=== PATIENT | male | born 1940 | race Caucasian/White ===

== ENCOUNTER 2016-11-17 17:34 | Inpatient (IN) | payer MEDICARE, OTHER ==
[~2016-11-17] VITALS: Ht 180.3 cm; Wt 122.1 kg
[~2016-11-17 17:34] MED LIST: ATOR20TA PO; FURO40TA4 PO; LOSA50TA37 PO; NOVO7030I SUBQ; OMEP20TA86 PO; RIVA15TA PO
[2016-11-17 17:40] VITALS: BP 154/76; PULSE 59; RESP 18; O2SAT 97
--- NOTE | 2016-11-17 19:18 | ED.REPORT ---
HPI-General Illness Date of Service November 17, 2016 ED Provider: Jeronimo Finney MD A 75 year old male with a medical history including diabetes, PE, arthritis, CVA , degenerative disc disease, and chronic BLE edema presents to the ED with increasing problems ambulating onset a couple of weeks ago, worsening three days ago. Associated symptoms include exertional shortness of breath, bilateral leg weakness, generalized "tingling," fatigue, and chills. The patient denies fever, diaphoresis, new leg swelling, dysuria, hematuria, hematochezia, recent weight change, or other symptoms. One month ago the patient could walk multiple lengths of his house but how he is short of breath and hardly able to walk out to his car. Nursing Notes Stated Complaint: LACK OF ENERGY/TINGLING IN BOTH ARMS AND CHEST Chief Complaint: General Complaint Nursing Notes Reviewed: Yes ([employer] not reconciled, EMR indicates ho Xarelto use) Allergies: Coded Allergies: No Known Allergies (Unverified , 11/17/16) Scheduled Aspirin (Aspirin) 81 Mg Tablet 81 MG PO DAILY Atorvastatin (Lipitor) 20 Mg Tablet 20 MG PO HS Furosemide (Furosemide) 40 Mg Tablet 40 MG PO QAM Insulin Aspart (NovoLOG 70/30 U100 Insulin Vial) 100 Unit/Ml Vial 35 UNIT SUBQ BID Losartan Potassium (Losartan Potassium) 50 Mg Tablet 50 MG PO BID Omeprazole (Omeprazole) 20 Mg Tablet.dr 40 MG PO DAILYWM Rivaroxaban (Xarelto) 15 Mg Tablet 15 MG PO BID General Time Seen by MD: 19:04 Chief Complaint Other (Problems with Ambulation) Hx Obtained From: Patient, Spouse Arrived By: Walk-in Sudden in Onset?: No Onset Occurred: More than a week ago... ("A couple of weeks") Symptom Duration: Since onset Severity: Current: No pain currently Severity: Maximum: No pain Pertinent Negative: Relieved by nothing Context Related History: Reports Diabetes mellitus Recent Healthcare: No recent doctor visit Past Medical History Past Medical History Notes: Admission for PE 09/17/15, on Warfarin Past Medical History Sleep apnea (not compliant w/CPAP) Arthritis Chronic BLE edema PE 09/2015 Degenerative disc disease CVA Reports: Diabetes mellitus, GERD, Stroke Past Surgical History Bilateral knee replacements Smoking History Never Smoker Social History Alcohol Use: Denies alcohol use Drug Use: Denies drug use Other Social History: Good social support, , Local resident Ambulatory Status Independent Review of Systems + Generalized "tingling" - New leg swelling Full Review of Systems Constitutional: Reports: Chills, Fatigue, Denies: Fever Respiratory: Reports: Shortness of breath (Exertional), Denies: Non-productive cough GI: Denies: Diarrhea, Hematochezia, Vomiting Male: Denies Dysuria, Denies Hematuria Endocrine: Denies: Weight gain, Weight loss Skin: Denies Diaphoresis Neurologic: Reports: Problem walking, Weakness (Bilateral lower extremities) Complete sys rev & neg: except as marked. Physical Exam Vital Signs Vital Signs Date Time Temp Pulse Resp B/P Pulse Ox O2 Delivery O2 Flow Rate FiO2 11/17/16 21:02 55 20 144/73 98 Room Air 11/17/16 17:40 36.0 59 18 154/76 97 Room Air Initial VS: Reviewed, Vital signs normal Head / Eyes: Atraumatic, Normocephalic ENT: Conjunctiva normal, No scleral icterus Skin: Warm, Dry Psychiatric: Mood/affect normal, Behavior normal General/Constitutional: Awake, Alert, No acute distress Respiratory / Chest: Breath sounds NL, Breath sounds = bilat, No respiratory distress No dyspnea Cardiovascular: Heart rate NL, Regular rhythm, Heart sounds NL, No murmurs Lower Ext Edema: Positive: Bilateral 2+, Pitting Abdomen: Soft, Non-tender Obese Neurologic: Oriented X3, Speech NL Focal Weakness: Positive: Lower extremity L, Lower extremity R, Weakness diffuse L, Weakness diffuse R No focal deficits Interpretation & Diagnostics Lab Results Interpretation Result Diagram: 11/17/16200911/17/162009 Test 11/17/16 20:10 11/17/16 22:19 11/17/16 22:40 White Blood Count 7.3th/mm3 (3.8-10.1) Red Blood Count 4.85mil/mm3 (4.40-5.80) Hemoglobin 15.1g/dL (13.8-17.2) Hematocrit 46.6% (41.0-50.0) Mean Corpuscular Volume 96.1fL (81-100) Mean Corpuscular Hemoglobin 31.1pg (27.0-35.0) Mean Corpuscular Hemoglobin Concent 32.4% (32.0-37.0) Red Cell Distribution Width 13.6% (12.3-15.4) Platelet Count 160bil/L (150-400) Neutrophils (%) (Auto) 68.6% (40-74) Lymphocytes (%) (Auto) 16.1% (14-46) Monocytes (%) (Auto) 8.8% (4-12) Eosinophils (%) (Auto) 5.9% (0-5) Basophils (%) (Auto) 0.3% (0-3) Prothrombin Time 10.0sec (8.1-12.5) Prothromb Time International Ratio 0.94ratio Activated Partial Thromboplast Time 25.9sec (22.8-33.0) D-Dimer 6.21mg/L FEU (<0.50) Sodium Level 144mEq/L (134-144) Potassium Level 4.5mEq/L (3.5-5.2) Chloride Level 104mEq/L (97-108) Carbon Dioxide Level 24mmol/L (18-29) Blood Urea Nitrogen 36mg/dL (8-27) Creatinine 1.18mg/dL (0.76-1.27) Estimat Glomerular Filtration Rate 64mL/min (>59) Glucose Level 117mg/dL (60-99) Lactic Acid Level 1.0mmol/L (0.4-2.0) Calcium Level 10.2mg/dL (8.5-10.1) Magnesium Level 1.9mg/dL (1.6-2.6) Total Bilirubin 0.5mg/dL (0.0-1.2) Aspartate Amino Transf (AST/SGOT) 13U/L (0-50) Alanine Aminotransferase (ALT/SGPT) 12U/L (0-44) Alkaline Phosphatase 73U/L (25-160) Pro-B-Type Natriuretic Peptide 172.5pg/mL (0-486) Total Protein 6.8g/dL (6.4-8.4) Albumin 4.3g/dL (3.4-5.0) Urine Color Yellow (YELLOW) Urine Appearance Clear (CLEAR,HAZY) Urine pH 5.5 (5.0-8.0) Urine Specific [place]ady 1.020 (1.003-1.035) Urine Protein Negativemg/dL (NEG,TRACE) Urine Glucose (UA) Negativemg/dL (NEGATIVE) Urine Ketones Negativemg/dL (NEGATIVE) Urine Occult Blood Negative (NEGATIVE) Urine Nitrite Negative (NEGATIVE) Urine Bilirubin Negative (NEGATIVE) Urine Urobilinogen Normalmg/dL (NORMAL) Urine Leukocyte Esterase Small (NEGATIVE) Urine RBC 0-2/hpf (0-2) Urine WBC 6-10/hpf (0-5) Urine Epithelial Cells Occasional/hpf (NONE-MOD) Urine Crystals None seen (NONE SEEN) Urine Bacteria None/hpf (NONE-FEW) Urine Hyaline Casts None/lpf (NONE) Urine Granular Casts None seen (NONE SEEN) Urine Waxy Casts None seen (NONE SEEN) Urine Red Blood Cell Casts None seen (NONE SEEN) Urine White Blood Cell Casts None seen (NONE SEEN) Urine Mucus None seen (None Seen) Urine Trichomonas None seen (NONE SEEN) Urine Yeast None (NONE SEEN) Urine Culture Reflexed Indicated Total Creatine Kinase 78U/L (21-232) Creatine Kinase MB 4.5ng/mL (0.0-10.4) Creatine Kinase MB % % (0.0-5.0) Troponin T 0.057ug/L (0.0-0.011) Thyroid Stimulating Hormone (TSH) 1.210uIU/mL (0.450-4.500) Lab Results Interpretation: CBC normal CMP normal Troponin elevated D-dimer elevated ProBNP normal ECG Interpretation ECG Interpretation: Sinus bradycardia rate 54 First degree heart block J-point elevation unchanged from prior (12/19/2015) Time: 19:09 Interpreted by: ED physician CT Chest Interpretation IMPRESSION: No pulmonary emboli identified. No aorta dissection evident. Small probable benign right renal cyst partially demonstrated. Nonemergent follow-up is recommended to assure benign nature. Transmitted to ED at 11/17/2016 - 10:12:31 PM PDT Study type: CT pulm angiogram Interpretation / Wet Read by: Interpret - Radiologist Re-Eval/Medical Decision Med Decision/Clinical Course This is a 75-year-old males had a previous PE, but is now off anticoagulation, who comes in with a history of worsening dyspnea on exertion, and profound generalized weakness and progressive over the past couple weeks. As recently as a month ago the patient could get up, walk around, he will use a cane, woke walk up to his car and drive. However over the past week, he he has gotten to the point we can barely walk the length of his house which he estimates to be 50 -60 feet being exhausted, and not able to do any further exertion for the day. His has noted profound new dyspnea on exertion as well-all the patient really did not describe such dyspnea to me. He denies chest pain diaphoresis. X-rays even get up-and asked what bottomed to the emergency department. He denies fevers, chills, blood loss, new medications, or additional complaints. Exam, and is globally weak, and cannot even lift either leg up off the gurney for more than an second. He has no focal deficits. His lung sounds are distant stiff secondary to habitus. And he has chronic edema of her legs which she says is unchanged. No Acute ischemic changes are evident on EKG, but is not notable for significant elevated d-dimer, and an elevated troponin-raising concern for recurrent PE. However his CT angiogram was ultimately negative, although given the initial concern I initiated the patient on a heparin drip. The patient's had aspirin today. At this point with the elevated troponin, an underlying cardiac event remains concerning as the patient's renal function is normal. An STEMI remains in the differential, and the patient is being admitted. Given the elevated troponin, and the fact that every initiated the patient And the plan is to leave him on heparin overnight while he has cardiac evaluation is being further pursued. Case is discussed with the admitting hospitalist. Source of Hx: Old records Time of Eval: 22:21 Patient Status: Condition improved Re-Evaluation/Progress Note: Discussed with patient lab, x-ray, and CT results, diagnosis, and plan for admit. Patient agrees with plan for care and all questions were addressed. Consultation : Referral / Consult Name: Hai Fairbanks MD Consulted With: Hospitalist Call Returned at: 22:26 Desulfurizer Machine: Agrees with eval, Agrees with plan, Accepts admit Differential Diagnosis: Negative: Abdominal pain, Allergies, Malingering Counseled Regarding: Diagnosis, Lab results, Need for admission Discharge & Departure Primary Impression: NSTEMI (non-ST elevated myocardial infarction) Additional Impressions: Generalized weakness Elevated troponin Disposition: ADMITTED TO HOSPITAL Discharge Condition All VS Reviewed: Yes Condition: Improved Referrals: Amanda Mccoy MD (PCP) Scribe Attestation Portions of this note were transcribed by Teresa Driver. I, Dr. Finney, personally performed the history, physical exam, and medical decision-making; I reviewed and confirmed the accuracy of the information in the transcribed note. Signed by: Lovely Catalan, 11/18/2016, 01:39 copies to: Amanda Mccoy MD, Matthew F MD November 17, 2016 19:18 TERESA DRIVER November 17, 2016 19:26
[2016-11-17 20:23] LABS: BASOPHILS % (AUTO) 0.3 % (0-3); EOSINOPHILS % (AUTO) 5.9 % (0-5); MONOCYTES % (AUTO) 8.8 % (4-12); Mean Corpuscular Hemoglobin 31.1 pg (27.0-35.0); Mean Corpuscular Volume 96.1 fL (81-100); NEUTROPHILS % (AUTO) 68.6 % (40-74); Platelet Count 160 bil/L (150-400)
--- NOTE | 2016-11-17 20:28 | DRSVH ---
PROCEDURE: X-RAY CHEST ONE VIEW, PORTABLE ([id number]) INDICATIONS: SHORTNESS OF BREATH TECHNIQUE: One view of the chest was acquired. COMPARISON: None. FINDINGS: Surgical changes and devices: None. Lungs and pleura: No pleural effusions or pneumothorax. Lungs are abnormal with a mild interstitial prominence and potential for presence of slight pulmonary edema. Mediastinum: Mediastinal contours appear normal. Heart size is at the upper limits of normal. Bones and chest wall: No suspicious bony lesions. Overlying soft tissues appear unremarkable. IMPRESSION: Mild interstitial prominence previously present, heart size at the upper limits of quan l. Possible slight superimposed pulmonary edema. Dictated by: Td Bliss M.D. on 11/17/2016 at 20:25 Approved by: Td Bliss M.D. on 11/17/2016 at 20:26
[2016-11-17 20:43] LABS: INR 0.94 ratio
[2016-11-17 20:46] LABS: Magnesium 1.9 mg/dL (1.6-2.6)
[2016-11-17 20:50] LABS: D-Dimer 6.21 mg/L FEU (<0.50)
[2016-11-17 21:02] VITALS: BP 144/73; PULSE 55; RESP 20; O2SAT 98
[2016-11-17] MEDS ORDERED: Heparin 25K Unit/500mL 0.45 NS 25,000 UNIT in IV Premix 1 EACH IV ONE (21:05)
[2016-11-17] MEDS ORDERED: Heparin 5,000 Unit/mL Inj IVPUSH ONE (21:05)
[2016-11-17 21:07] LABS: TROPONIN T 0.07 ug/L (0.0-0.011)
[2016-11-17] MEDS ORDERED: 0.9% Sodium Chloride 1,000 ML IV SCH (22:28)
[2016-11-17] MEDS ORDERED: Polyethylene Glycol (PEG) 17 Gm Powder PO PRN (22:30)
[2016-11-17] MEDS ORDERED: Atropine 1 mg/10 mL (Code) Syringe IVPUSH PRN (22:30)
[2016-11-17] MEDS ORDERED: Ondansetron 2 mg/mL 2 mL Inj IVPUSH PRN (22:30)
[2016-11-17] MEDS ORDERED: Alum-Mag Hydrox-Simeth 30 mL Suspension PO PRN (22:30)
[2016-11-17 22:38] LABS: APPEARANCE,URINE CLEAR (CLEAR,HAZY); COLOR,URINE YELLOW (YELLOW); OCCULT BLOOD,URINE NEGATIVE (NEGATIVE); PH,URINE 5.5 (5.0-8.0); UROBILINOGEN,URINE NORMAL (NORMAL)
[2016-11-17] MEDS ORDERED: Glucose 40% Oral Gel 15 Gm Tube PO PRN (22:45)
[2016-11-17 23:43] VITALS: BP_SYST 140; PULSE 53; RESP 20; O2SAT 99
[2016-11-17 23:45] LABS: Creatine Kinase 78 U/L (21-232)
[2016-11-17 23:48] LABS: TROPONIN T 0.057 ug/L (0.0-0.011)
[2016-11-18] VITALS (11 sets, daily range): BP systolic 120–159; BP diastolic 58–82; PULSE 45–66; RESP 16–20; O2SAT 94–96
[2016-11-18] MEDS: Sodium Chloride LOK Flush 10 mL Syringe IVFLUSH SCH ×4 (00:30→20:23)
[2016-11-18] MEDS ORDERED: ASPI-973 PO (00:31)
--- NOTE | 2016-11-18 01:22 | PCM.HPMED ---
Subjective Date of Service November 17, 2016 Primary Provider: Admitting Physician: Primary Care Physician: Amanda Mccoy MD Attending Physician: Admit Status: From the Emergency Department, 23-Hour Observation Chief Complaint: Generalized weakness History of Present Illness: Moses Paz is a 75 year old male with Diabetes, Prior Pulmonary embolism, Obesity and Sleep apnea and chronic BLE edema presents to [facility] emergency with increasing problems ambulation and generalized weakness Patient reported onset a couple of weeks ago, worsening within the last three days. Associated symptoms include exertional shortness of breath, bilateral leg weakness (requiring a walker, walking only few feet before pausing to rest, baseline is able to perform activities of daily life), generalized "tingling," fatigue, and chills. Denies any coughing, fever or chills. Denies any urinary symptoms such as dysuria. Patient reported compliance with medications. Also reporting good Diabetes control at home Patient has history of Pulmonary embolism years ago and currently not on any anticoagulations. Etiology of this was unclear at this time Case discussed with Dr Finney, CT confirmed no Pulmonary embolism. Heparin initiated. Discussed risk factors and need for stress test and will be admitted Review of Systems: Pertinent positives as noted in HPI. All other systems were reviewed and are negative Allergies Coded Allergies: No Known Allergies (Unverified , 11/17/16) Home Medications From NEXT GEN, NOT YET CONFIRMED Medication Directions aspirin 81 mg tablet,delayed release take 1 tablet by oral route every day ATORVASTATIN TAB 20MG TABLET TAKE ONE TABLET BY MOUTH EVERY DAY FUROSEMIDE 40 MG TABLET take 1 and 1/2 to 2 tablets by mouth daily insulin syringe-needle U-100 0.3 mL 31 gauge x 5/16" use to inject insulin 70/ 30 twice daily losartan 50 mg tablet take 1 tablet (50MG) by oral route 2 times every day Novolog Mix 70-30 100 unit/mL subcutaneous solution inject by subcutaneous route 28-32 units with breakfast and 33-36 dinner omeprazole 20 mg capsule,delayed release take 1 capsule by oral route every day before a meal tamsulosin 0.4 mg capsule take 1 capsule by oral route every day 1/2 hour following the same meal each day tramadol 50 mg tablet take 1 tablet by oral route every 6 hours as needed PMH History of pulmonary embolus Type 2 diabetes mellitus Incomplete emptying of bladder Hyperlipidemia Obesity with MATEO (obstructive sleep apnea) Stroke Restless legs syndrome Essential tremor Hypertension GERD Benign prostate hyperplasia Swelling of lower extremities Persistent diarrhea Chronic back pain Spinal stenosis and foraminal stenosis with difficulty walking . Surgical History TURP Bilateral knee surgery Family History Father and Brother diabetic Brother has angioplasty and stent placed Social History Occupation: elevator service mechanic Hx Alcohol Use: No Hx Substance Use: No Hx Tobacco Use: No Smoking Status: Never Smoker Living Arrangement: with Family Exam Vital Signs Vital Sign - Last Date Time Temp Pulse Resp B/P Pulse Ox O2 Delivery O2 Flow Rate FiO2 11/17/16 21:02 55 20 144/73 98 Room Air 11/17/16 17:40 36.0 Exam General: Alert, Oriented X3, Cooperative, No acute Distress Eyes: PERRLA, Scleral Anicteric Mouth: Mouth Normal, Mucous Membranes Moist/[place] Neck: Supple, no Thyromegaly, trachea central. Chest & Lungs: decreased breathe sounds at bases Cardiovascular: Normal S1, Normal S2, No Murmurs/Rubs/Gallops, Regular Rate/ Rhythm, (No JVD, 2 + peripheral edema) Pulses: Radial (present and equal), Dorsalis Pedi (present and equal) Abdomen: Soft, Non-tender, Non-distended, Normoactive bowel tones. Musculoskeletal: Unremarkable. Normal range of motion, no swollen or erythematous joints Extremities: 2 + edema, no cyanosis, no clubbing. Skin: No rashes. Warm and dry, no erythematous areas Neurological: Grossly neurologically intact, has generalized weakness, Normal Speech, Sensation Intact Lymphatic: Lymph nodes Cervical and Axillary not palpable. Lab and Diagnostics Labs Laboratory Tests Test 11/17/16 20:10 11/17/16 22:19 White Blood Count 7.3th/mm3 (3.8-10.1) Red Blood Count 4.85mil/mm3 (4.40-5.80) Hemoglobin 15.1g/dL (13.8-17.2) Hematocrit 46.6% (41.0-50.0) Mean Corpuscular Volume 96.1fL (81-100) Mean Corpuscular Hemoglobin 31.1pg (27.0-35.0) Mean Corpuscular Hemoglobin Concent 32.4% (32.0-37.0) Red Cell Distribution Width 13.6% (12.3-15.4) Platelet Count 160bil/L (150-400) Neutrophils (%) (Auto) 68.6% (40-74) Lymphocytes (%) (Auto) 16.1% (14-46) Monocytes (%) (Auto) 8.8% (4-12) Eosinophils (%) (Auto) 5.9% (0-5) Basophils (%) (Auto) 0.3% (0-3) Prothrombin Time 10.0sec (8.1-12.5) Prothromb Time International Ratio 0.94ratio D-Dimer 6.21mg/L FEU (<0.50) Sodium Level 144mEq/L (134-144) Potassium Level 4.5mEq/L (3.5-5.2) Chloride Level 104mEq/L (97-108) Carbon Dioxide Level 24mmol/L (18-29) Blood Urea Nitrogen 36mg/dL (8-27) Creatinine 1.18mg/dL (0.76-1.27) Estimat Glomerular Filtration Rate 64mL/min (>59) Glucose Level 117mg/dL (60-99) Lactic Acid Level 1.0mmol/L (0.4-2.0) Calcium Level 10.2mg/dL (8.5-10.1) Magnesium Level 1.9mg/dL (1.6-2.6) Total Bilirubin 0.5mg/dL (0.0-1.2) Aspartate Amino Transf (AST/SGOT) 13U/L (0-50) Alanine Aminotransferase (ALT/SGPT) 12U/L (0-44) Alkaline Phosphatase 73U/L (25-160) Troponin T 0.070ug/L (0.0-0.011) Pro-B-Type Natriuretic Peptide 172.5pg/mL (0-486) Total Protein 6.8g/dL (6.4-8.4) Albumin 4.3g/dL (3.4-5.0) Thyroid Stimulating Hormone (TSH) 1.220uIU/mL (0.450-4.500) Result Diagram: 11/17/16200911/17/162009 X-Rays, CTs and MRIs X-RAY CHEST ONE VIEW, PORTABLE 11/17 IMPRESSION: Mild interstitial prominence previously present, heart size at the upper limits of normal. Possible slight superimposed pulmonary edema. Dictated by: Td Bliss M.D. on 11/17/2016 at 20:25 Approved by: Td Bliss M.D. on 11/17/2016 at 20:26 CT ANGIO CHEST PULMONARY EMBOLISM 11/17 IMPRESSION: 1. No pulmonary embolus seen. 2. Stable appearance of ascending aortic aneurysm measuring 5.3-5.4 cm in maximal dimension, just above the aortic root, and is also present on prior pulmonary angiographic imaging as early as 09/19/15. 3. Stable appearance of a partially visualized cyst projecting from the upper outer border of the right kidney, also present on prior CT scanning. Note: These findings are concordant with the preliminary interpretation, except for the benefit of comparison to prior CT renal protocol examination regarding the right upper renal cortical cyst. Also, there is a stable enlargement of the ascending aorta at 5.3-5.4 cm maximal AP dimension which was also present on the earliest available CT pulmonary angiogram from 09/19/15, and . Dictated by: Td Bliss M.D. on 11/18/2016 at 3:26 Approved by: Td Bliss M.D. on 11/18/2016 at 3:39 Assessment & Plan Moses Paz is a 75 year old male with Diabetes, Prior Pulmonary embolism, Obesity and Sleep apnea and chronic BLE edema presents to [facility] emergency with increasing problems ambulation and generalized weakness 1. Acute generalized weakness with dyspnea. Present on admission. resolved Pulmonary embolism ruled out with CT angio tonight (elevated D dimer). Several risk factors for Acute Coronary artery disease with Hypertension, Obesity, Diabetes, Family history of coronary disease and age. No previous Stress test as per patient. Dyspnea can be an anginal equivalent and Diabetics have atypical symptoms with myocardial infarction. - monitor on telemetry - trending cardiac biomarkers - continue Aspirin for platelet therapy - continue Heparin drip overnight - nothing by mouth after midnight - Physical therapy assessment 2 Acute on Chronic bilateral leg edema. Present on admission Suspect Heart failure despite normal BNP (Obesity can falsely low BNP levels). Clinical evidence with leg edema and dyspnea on exertion - complete echo requested - maintain low sodium diet 3 Diabetes Type 2 - low correction Lispro algorithm - checking A1c - patient on insulin 70/30 as outpatient (will confirm dose) 4 Obesity with Obstructive Sleep Apnea - non compliant with CPAP due to trouble sleeping 5 Hyperlipidemia - continue Atorvastatin 20 mg daily 6 Hypertension - continue Losartan 50 mg bid 7 Benign prostate hyperplasia - continue Tamsulosin 0.4 mg daily 8 Chronic back pain Spinal stenosis and foraminal stenosis No acute neurological deficit noted - Acetaminophen as needed for mild pain/fever/headache - Bowel regimen as needed - Antiemetic as needed Patient is admitted under observation status with expected length of stay less than 2 midnights due to severity of presenting symptoms, risk of adverse event, and complexity of treatment plan . Resuscitation Status: CPR: Attempt Resuscitation Hai Fairbanks MD November 17, 2016 22:35
--- NOTE | 2016-11-18 02:01 | NUR ---
Pt admitted to [facility] from ED. Transport via gurney, pt able to ambulate to standing scale and bed. Pt is a/o x 3. Moves all extremities. Significant edema to lower extremities which is baseline for this pt. HR sinus rodney with no ectopy noted. Blood sugar was 102. Vital signs stable. All belongings are in pt's closet in room. Will continue to closely monitor pt through the night.
--- NOTE | 2016-11-18 03:41 | DRSVH ---
PROCEDURE: CT ANGIO CHEST PULMONARY EMBOLISM ([id number]) INDICATIONS: SOB, DImer 7, ho PE TECHNIQUE: After the administration of intravenous contrast, 2 mm thick sections acquired from the pulmonary api juice to the posterior costophrenic angles. 3-dimensional maximum intensity projection (MIP) coronal a nd sagittal reformats were then acquired through the thorax. For radiation dose reduction, the follo wing was used: automated exposure control, adjustment of mA and/or kV according to patient size. C was present on prior CT pulmonary angiographic imaging OMPARISON: [facility], CT, CHES T ANGIO-PE, 12/29/2012, 19:06. [facility], CT, CT ANGIO CHEST PE, 09/19/2015, 0:12. [facility], CT, CT ANGIO CHEST PE, 10/08/2015, 16:46. [facility], CT, CT ABD RENAL PROTOCOL, 06/25/2016, 15:03. FINDINGS: Image quality: Excellent. Pulmonary arteries: Pulmonary arteries are normal in size, and demonstrate no intraluminal filling d efects to suggest central pulmonary embolism. Lungs and pleura: Lungs are clear. No pleural effusions or pneumothorax. Central and peripheral ai rways are patent. Mediastinum: Heart size is normal, without pericardial effusion. No mediastinal or hilar adenopathy . The descending aorta is normal in caliber and enhancement, and the ascending thoracic aorta has not changed from the prior examination (also pulmonary embolus evaluation) dated 12/19/15 the maximal AP d imension of 5.3-5.[address] earlier CT pulmonary angiogram from December of 2012 in the same area sh ow the ascending aorta be to be measured at 5.5 cm. Esophagus is normal in caliber, without hiatal h ernia. Bones and chest wall: No suspicious bony lesions. Ribs and thoracic spine appear intact throughout. Thyroid gland appears normal where well visualized. No axillary or supraclavicular adenopathy. Abdomen: Visualized upper abdominal solid organs appear normal in the early arterial phase of enhanc ement. There is a simple appearing cyst at the upper outer border of the right kidney, only partiall y visualized but better visualized by dedicated renal protocol CT from 06/25/16. IMPRESSION: 1. No pulmonary embolus seen. 2. Stable appearance of ascending aortic aneurysm measuring 5.3-5.4 cm in maximal dimension, just ab ove the aortic root, and is also present on prior pulmonary angiographic imaging as early as 09/19/15. 3. Stable appearance of a partially visualized cyst projecting from the upper outer border of the ri ght kidney, also present on prior CT scanning. Note: These findings are concordant with the preliminary interpretation, except for the benefit of c omparison to prior CT renal protocol examination regarding the right upper renal cortical cyst. Also , there is a stable enlargement of the ascending aorta at 5.3-5.4 cm maximal AP dimension which was a lso present on the earliest available CT pulmonary angiogram from 09/19/15, and 12/29/12. Dictated by: Td Bliss M.D. on 11/18/2016 at 3:26 Approved by: Td Bliss M.D. on 11/18/2016 at 3:39
[2016-11-18 04:48] LABS: BASOPHILS % (AUTO) 0.3 % (0-3); EOSINOPHILS % (AUTO) 7.2 % (0-5); MONOCYTES % (AUTO) 11.3 % (4-12); Mean Corpuscular Hemoglobin 31.5 pg (27.0-35.0); Mean Corpuscular Volume 95.7 fL (81-100); NEUTROPHILS % (AUTO) 63.9 % (40-74); Platelet Count 166 bil/L (150-400)
[2016-11-18 05:21] LABS: Creatine Kinase 82 U/L (21-232)
[2016-11-18 05:24] LABS: TROPONIN T 0.054 ug/L (0.0-0.011)
[2016-11-18] MEDS: Insulin LISPRO 300 Unit/3 mL Inj SUBQ SCH ×4 (08:00→21:00)
[2016-11-18] MEDS ORDERED: Furosemide 10 mg/mL 4 mL Inj IVPUSH ONE (09:55)
--- NOTE | 2016-11-18 11:23 | NUR ---
Case Management: RENETTA given and explained to pt. Gilma BARLOWRN
--- NOTE | 2016-11-18 12:15 | DRSVH ---
[facility] [address] [place] [place] [address] Echocardiogram Report Name: NICK BEYER Date: 11/18/2016 Height: 71 in Hospital Exam Location: [facility] Weight: 274 lb Gender: Male BSA: 2.4 m2 : 1940 Age: 75 yrs BP: 129/58 mmHg Reason For Study: Chest pain Ordering Physician: [facility] Performed By: Yaakov Lopez Referring Physician: OH KIRKPATRICK Interpretation Summary The left ventricle is normal in size. Left ventricular systolic function is low normal. The ejection fraction is estimated to be 50-55%. Compared to the prior exam, left ventricular function is borderline decreased. There is hypokinesis along the inferolateral wall and part of the inferior wall which is new since prior study. Assessment of diastolic parameters indicates a relaxation abnormality of the left ventricle, consistent with normal filling pressures. The right ventricle is normal in size and function. The right ventricular systolic pressure is estimated at 25 mmHg assuming a right atrial pressure of 3 mm Hg. The left atrium is mildly dilated. The right atrium is mildly dilated. There is mild aortic regurgitation. The aortic valve is moderately calcified. There is no hemodynamically significant valvular aortic stenosis. The aortic root is moderately dilated. The ascending aorta is moderately enlarged. This is increased compared to the previous study. Procedure: A two-dimensional transthoracic echocardiogram with color flow and Doppler was performed. The study quality was technically adequate. A contrast injection of Definity was performed to improve assessment of LV function. Comparison is made with the echocardiogram of 12/22/2015. Left Ventricle: The left ventricle is normal in size. Left ventricular systolic function is low normal. The ejection fraction is estimated to be 50- 55%. Compared to the prior exam, left ventricular function is borderline decreased. There is hypokinesis along the inferolateral wall and part of the inferior wall. Compared to the prior exam, the posterior wall motion abnormality has increased in severity. Assessment of diastolic parameters indicates a relaxation abnormality of the left ventricle, consistent with normal filling pressures. Right Ventricle: The right ventricle is normal in size and function. Atria: The left atrium is mildly dilated. The right atrium is mildly dilated. There is no Doppler evidence for an atrial septal defect. Mitral Valve: The mitral valve leaflets are mildly calcified. There is mild mitral annular calcification. There is no mitral regurgitation noted. Aortic Valve: The aortic valve is trileaflet. The aortic valve is moderately calcified. The peak aortic velocity is 248 m/sec. The aortic valve mean gradient is 15 mmHg. There is no hemodynamically significant valvular aortic stenosis. There is mild aortic regurgitation. Tricuspid Valve: The tricuspid valve is not well visualized. The tricuspid valve is not well visualized, but is grossly normal. The right ventricular systolic pressure is estimated at 25 mmHg assuming a right atrial pressure of 3 mm Hg. Pulmonic Valve: The pulmonic valve leaflets are thin and pliable; valve motion is normal. There is a trace or physiologic amount of pulmonic regurgitation. Great Vessels: The aortic root is moderately dilated. The ascending aorta is moderately enlarged. This is increased compared to the previous study. The IVC is of normal diameter and collapses greater than 50% with a sniff. This suggests a low right atrial pressure of 3 mm Hg. Pericardium/ Pleura There is no pericardial effusion. There is no pleural effusion. MMode/2D Measurements & Calculations LVIDd: 5.1 cm RA long axis LVOT diam LVIDs: 3.8 cm LA A2 area: 23.0 cm FS: 25.7 % LA A4 area: 24.1 cm RA area AoV Opening LA length (vol): 5.9 cm LA vol: 79.6 ml : 23.4 cm Ao root diam LA vol index RA vol : 96.0 ml Aortic Jxn RA IVC diam: 2.1 cm : 39.8 mm2 asc Aorta Diam: 4.8 cm LV headley. diameter/BSA LV sys. diameter/BSA RVD1 (basal) RVD2 (mid) (cm/m^2): 2.1 (cm/m^2): 1.6 : 3.5 cm TAPSE: 2.0 cm Doppler Measurements & Calculations Ao V2 max MV E max jaxon MV E/A: 0.60 TR max jaxon : 247.7 cm/sec : 62.2 cm/sec Med Peak E' Jaxon : 236.1 cm/sec Ao max PG MV A max jaxon TR max PG : 24.5 mmHg : 102.9 cm/sec E/E' med: 16.3 : 22.3 mmHg Ao mean PG MV P1/2t: 90.2 msec Lat Peak E' Jaxon PA V2 max : 14.9 mmHg : 66.8 cm/sec LVOT Max Jaxon E/E' lat: 10.6 PA mean PG : 126.2 cm/sec E/e' average : 0.98 mmHg PA Accel Time CALIXTO(I,D): 2.4 cm Pulm A Revs Dur : 0.11 sec sev ratio: 0.48 AI P1/2t : 769.9 msec AI dec slope : 117.0 cm/s2c MV dec time MV P1/2t max jaxon Ao V2 mean LV V1 max PG : 0.31 sec : 185.0 cm/sec MVA(P1/2t): 2.4 cm2 Ao V2 VTI: 62.7 cm LV V1 VTI CALIXTO(V,D): 2.5 cm2 : 30.2 cm PA V2 mean CALIXTO indexed to BSA : 47.2 cm/sec (cm^2/m^2): 1.00 PA pr(Accel) : 27.6 mmHg Reading Physician:SHASHI
[2016-11-18] MEDS ORDERED: NOVO7030I SUBQ (16:41)
[2016-11-18] MEDS ORDERED: LOSA50TA37 PO (16:41)
--- NOTE | 2016-11-18 16:54 | PCM.PNMED ---
Subjective Date of Service November 18, 2016 Subjective Mr. Paz is a 75 year old gentleman with diabetes mellitus, prior pulmonary embolism, obesity, obstructive sleep apnea and chronic bilateral lower extremity edema who presented to the Emergency Department with the complaint of increasing difficulties with ambulation and generalized weakness. Admitted for elevated troponin with concern for acute coronary syndrome and possible heart failure. Hospital day #2. Exam Vital Signs Vital Sign - Last Date Time Temp Pulse Resp B/P Pulse Ox O2 Delivery O2 Flow Rate FiO2 11/18/16 08:30 36.4 52 20 141/74 94 Room Air Intake and Output 11/17/16 11/17/16 11/18/16 Cumulative From/Thru 15:00 23:00 07:00 11/17/16 17:40 - 11/18/16 06:35 Intake Total 371 ml 371 ml Output Total 500 ml 400 ml 900 ml Balance -500 ml -29 ml -529 ml Intake Oral 120 ml 120 ml IV Total 251 ml 251 ml Output Urine Total 500 ml 400 ml 900 ml Exam General: Chronically ill-appearing, obese male lying in bed, in no acute distress. HEENT: Normocephalic, atraumatic. Pupils equal round and reactive to light, no scleral icterus, mucous membranes moist. Neck: Supple, non-tender, no thyromegaly or lymphadenopathy. No JVD Cardiovascular: Regular rate and rhythm with normal S1/S2, no murmurs, rubs or gallops heard. Pulmonary: Normal breath sounds, symmetric chest rise, lungs grossly clear to auscultation with no wheezing, rales or rhonchi. Abdomen: Soft, Non-tender, Non-distended, Normoactive bowel tones. Extremities: 2 + edema pitting edema of lower extremities bilaterally, no cyanosis, no clubbing. Musculoskeletal: Flattened arches of the feet bilaterally, nontender to palpation without crepitus or effusions. Ankle joints stable without subluxation or laxity. Skin: No rashes. Warm and dry, no erythematous areas Neurological: Generalized weakness, no focal neurologic deficits. Alert and oriented to person, place and time. IVs and Medications Medications Reviewed: Medications were reviewed in detail Lab and Diagnostics Laboratory Tests Test 11/17/16 20:10 11/17/16 22:19 11/17/16 22:40 11/18/16 04:30 White Blood Count 7.3th/mm3 (3.8-10.1) 7.5th/mm3 (3.8-10.1) Red Blood Count 4.85mil/mm3 (4.40-5.80) 4.61mil/mm3 (4.40-5.80) Hemoglobin 15.1g/dL (13.8-17.2) 14.5g/dL (13.8-17.2) Hematocrit 46.6% (41.0-50.0) 44.1% (41.0-50.0) Mean Corpuscular Volume 96.1fL (81-100) 95.7fL (81-100) Mean Corpuscular Hemoglobin 31.1pg (27.0-35.0) 31.5pg (27.0-35.0) Mean Corpuscular Hemoglobin Concent 32.4% (32.0-37.0) 32.9% (32.0-37.0) Red Cell Distribution Width 13.6% (12.3-15.4) 13.5% (12.3-15.4) Platelet Count 160bil/L (150-400) 166bil/L (150-400) Neutrophils (%) (Auto) 68.6% (40-74) 63.9% (40-74) Lymphocytes (%) (Auto) 16.1% (14-46) 17.2% (14-46) Monocytes (%) (Auto) 8.8% (4-12) 11.3% (4-12) Eosinophils (%) (Auto) 5.9% (0-5) 7.2% (0-5) Basophils (%) (Auto) 0.3% (0-3) 0.3% (0-3) Prothrombin Time 10.0sec (8.1-12.5) Prothromb Time International Ratio 0.94ratio Activated Partial Thromboplast Time 25.9sec (22.8-33.0) 84.9sec (22.8-33.0) D-Dimer 6.21mg/L FEU (<0.50) Sodium Level 144mEq/L (134-144) 142mEq/L (134-144) Potassium Level 4.5mEq/L (3.5-5.2) 4.4mEq/L (3.5-5.2) Chloride Level 104mEq/L (97-108) 105mEq/L (97-108) Carbon Dioxide Level 24mmol/L (18-29) 24mmol/L (18-29) Blood Urea Nitrogen 36mg/dL (8-27) 33mg/dL (8-27) Creatinine 1.18mg/dL (0.76-1.27) 1.03mg/dL (0.76-1.27) Estimat Glomerular Filtration Rate 64mL/min (>59) 75mL/min (>59) Glucose Level 117mg/dL (60-99) 160mg/dL (60-99) Hemoglobin A1c 6.4% (4.8-5.6) Lactic Acid Level 1.0mmol/L (0.4-2.0) Calcium Level 10.2mg/dL (8.5-10.1) 9.7mg/dL (8.5-10.1) Magnesium Level 1.9mg/dL (1.6-2.6) Total Bilirubin 0.5mg/dL (0.0-1.2) Aspartate Amino Transf (AST/SGOT) 13U/L (0-50) Alanine Aminotransferase (ALT/SGPT) 12U/L (0-44) Alkaline Phosphatase 73U/L (25-160) Troponin T 0.070ug/L (0.0-0.011) 0.057ug/L (0.0-0.011) 0.054ug/L (0.0-0.011) Pro-B-Type Natriuretic Peptide 172.5pg/mL (0-486) Total Protein 6.8g/dL (6.4-8.4) Albumin 4.3g/dL (3.4-5.0) Thyroid Stimulating Hormone (TSH) 1.220uIU/mL (0.450-4.500) 1.210uIU/mL (0.450-4.500) Urine Color Yellow (YELLOW) Urine Appearance Clear (CLEAR,HAZY) Urine pH 5.5 (5.0-8.0) Urine Specific [place] 1.020 (1.003-1.035) Urine Protein Negativemg/dL (NEG,TRACE) Urine Glucose (UA) Negativemg/dL (NEGATIVE) Urine Ketones Negativemg/dL (NEGATIVE) Urine Occult Blood Negative (NEGATIVE) Urine Nitrite Negative (NEGATIVE) Urine Bilirubin Negative (NEGATIVE) Urine Urobilinogen Normalmg/dL (NORMAL) Urine Leukocyte Esterase Small (NEGATIVE) Urine RBC 0-2/hpf (0-2) Urine WBC 6-10/hpf (0-5) Urine Epithelial Cells Occasional/hpf (NONE-MOD) Urine Crystals None seen (NONE SEEN) Urine Bacteria None/hpf (NONE-FEW) Urine Hyaline Casts None/lpf (NONE) Urine Granular Casts None seen (NONE SEEN) Urine Waxy Casts None seen (NONE SEEN) Urine Red Blood Cell Casts None seen (NONE SEEN) Urine White Blood Cell Casts None seen (NONE SEEN) Urine Mucus None seen (None Seen) Urine Trichomonas None seen (NONE SEEN) Urine Yeast None (NONE SEEN) Urine Culture Reflexed Indicated Total Creatine Kinase 78U/L (21-232) 82U/L (21-232) Creatine Kinase MB 4.5ng/mL (0.0-10.4) 4.3ng/mL (0.0-10.4) Creatine Kinase MB % % (0.0-5.0) % (0.0-5.0) Triglycerides Level 84mg/dL (0-149) Cholesterol Level 148mg/dL (100-199) LDL Cholesterol, Calculated 78.200mg/dL (0-99) VLDL Cholesterol 16.800mg/dL HDL Cholesterol 53mg/dL (>39) Cholesterol/HDL Ratio 2.79 (0.0-4.4) Test 11/18/16 10:20 Activated Partial Thromboplast Time 145.9sec (22.8-33.0) Microbiology 11/17/16 Urine Culture - No growth to date Result Diagram: 11/18/16 0430 11/18/16 0430 X-Rays, CTs and MRIs X-RAY CHEST ONE VIEW, PORTABLE 11/17/16 IMPRESSION: Mild interstitial prominence previously present, heart size at the upper limits of normal. Possible slight superimposed pulmonary edema. Dictated and approved by: Td Bliss M.D. on 11/17/2016 at 20:25 CT ANGIO CHEST PULMONARY EMBOLISM 11/17/16 IMPRESSION: 1. No pulmonary embolus seen. 2. Stable appearance of ascending aortic aneurysm measuring 5.3-5.4 cm in maximal dimension, just above the aortic root, and is also present on prior pulmonary angiographic imaging as early as 09/19/15. 3. Stable appearance of a partially visualized cyst projecting from the upper outer border of the right kidney, also present on prior CT scanning. Note: These findings are concordant with the preliminary interpretation, except for the benefit of comparison to prior CT renal protocol examination regarding the right upper renal cortical cyst. Also, there is a stable enlargement of the ascending aorta at 5.3-5.4 cm maximal AP dimension which was also present on the earliest available CT pulmonary angiogram from 09/19/15, and . Dictated and approved by: Td Bliss M.D. on 11/18/2016 at 3:26 Cardiac Echo Impressions ECHOCARDIOGRAM REPORT 11/18/2016 Interpretation Summary The left ventricle is normal in size. Left ventricular systolic function is low normal. The ejection fraction is estimated to be 50-55%. Compared to the prior exam, left ventricular function is borderline decreased. There is hypokinesis along the inferolateral wall and part of the inferior wall which is new since prior study. Assessment of diastolic parameters indicates a relaxation abnormality of the left ventricle, consistent with normal filling pressures. The right ventricle is normal in size and function. The right ventricular systolic pressure is estimated at 25 mmHg assuming a right atrial pressure of 3 mm Hg. The left atrium is mildly dilated. The right atrium is mildly dilated. There is mild aortic regurgitation. The aortic valve is moderately calcified. There is no hemodynamically significant valvular aortic stenosis. The aortic root is moderately dilated. The ascending aorta is moderately enlarged. This is increased compared to the previous study. Assessment & Plan Mr. Paz is a 75 year old gentleman with diabetes mellitus, prior pulmonary embolism, obesity, obstructive sleep apnea and chronic bilateral lower extremity edema who presented to the Emergency Department with the complaint of increasing difficulties with ambulation and generalized weakness. Admitted for elevated troponin with concern for acute coronary syndrome and possible heart failure. Hospital day #2. 1. Possible congestive heart failure, unknown chronicity, present on admission. Active. -Clinically, patient appears to have signs and symptoms of heart failure including: bilateral lower extremity, increasing dyspnea on exertion, and orthopnea. -Echocardiogram on 11/18/16 showing EF of 50-55%, hypokinesis of inferolateral wall (new from prior study), evidence of diastolic dysfunction and moderate dilation of the aortic root. -Received 40mg of IV furosemide, will continue home dosing of oral furosemide -Patient not on a beta-jewel, likely due to bradycardia. Will continue losartan and furosemide. 2. Concern for acute coronary syndrome, present on admission. Active. - Elevated troponin (0.070) in patient with high-risk for coronary artery disease. Risk factors include: hypertension, obesity, diabetes, family history of coronary disease and age - Patient admitted under observational status for additional monitoring on telemetry, trending of troponins, cardiac stress test and started on Heparin drip. - Continue aspirin, atorvastatin - Sublingual nitroglycerin as needed for chest pain - Cardiac stress test, results pending. 3. Ascending aortic aneurysm, chronic. Present on admission. Appears stable. -CT angiogram on 11/17/16 showing 5.3-5.4cm ascending aortic aneursym, just above the aortic root, present on prior CT angiogram as early as 09/19/15. -Patient not on a beta-jewel, likely due to bradycardia. Will continue losartan and furosemide to optimize blood pressure control. -Continue aspirin, atorvastatin. 3 Diabetes Type 2, insulin using, chronic. Present on admission. Presumed stable. - HbA1c 6.4 - Hold home regimen: insulin 70/30 (28units morning, 30units evening) - Continue low dose correctional insulin 4 Obesity with Obstructive Sleep Apnea, chronic. Present on admission. Presumed stable - Patient non-compliant with CPAP - Supplemental oxygen as needed - Consider bringing in CPAP from home if patient requires additional monitoring 5 Hyperlipidemia, chronic. Present on admission. Presumed stable. - Continue home Atorvastatin 20 mg daily 6 Hypertension, chronic. Present on admission. Presumed stable. - Continue home Losartan 50 mg bid 7 Benign prostate hyperplasia, chronic. Present on admission. Presumed stable. - Continue home Tamsulosin 0.4 mg daily - Acetaminophen for mild pain/fever/headache - Bowel regimen - Antiemetics Disposition: Patient will likely discharge home on 11/18/16, pending results of cardiac stress test. Pain Evaluation: Adequate Pain Control Resuscitation Status: CPR: Attempt Resuscitation Attending Statement The patient was seen and examined together with Dr. Lombardi on 11/18/2016 and I agree with the history, exam and plan as outlined in the note above. . Kylee Lombardi DO November 18, 2016 11:21 Eddie Smith MD November 18, 2016 19:59
[2016-11-18] MEDS: Senna-Docusate 8.6-50 mg Tablet PO PRN (18:09)
--- NOTE | 2016-11-18 18:19 | DRSVH ---
PROCEDURE: 1 DAY PHARMACOLOGICAL STRESS TEST Rest and pharmacological stress myocardial perfusion SPECT with gated imaging and ejection fraction RADIOPHARMACEUTICAL: 11.46 mCi Tc-99m tetrafosmin IV at rest and 33.1 mCi Tc-99m tetrafosmin IV at p eak effect of pharmacological stress. A [id number] was performed. INDICATIONS: chest pain TECHNIQUE: Radiopharmaceutical was injected at peak stress test, and also at rest. SPECT images wer e obtained. SPECT myocardial perfusion images were displayed in short axis, horizontal long axis, an d vertical long axis views. Gated images were reviewed using [employer] software. COMPARISON: None. CARDIAC STRESS: A pharmacologic stress test was performed under the supervision of an attending staff, using an infus ion of lexiscan . Hemodynamic data: There is normal blood pressure and heart rate response to pharmacologic stress. Symptoms: The patient denied anginal chest pain. Aminophylline: none EKG: No diagnostic ECG changes throughout most of the test. However, at 2 minutes, there are transi ent ST elevations seen in leads II, III, avF (this is not seen elsewhere in the test) FINDINGS: Raw data: There is good myocardial uptake of radiotracer. No significant motion artifacts. Left ventricle function: Gated images demonstrate normal left ventricular wall thickening. No segme ntal wall motion abnormalities. Left ventricle resting end diastolic volume is 120 mL. Left ventric le stress ejection fraction is 63% ; normal range is above 45%. Myocardial perfusion: There is small to moderate sized area of mild to moderately decreased uptake a ffecting the basal inferior wall that shows some improvement in the basal inferolateral wall. Unfor tunately, the rest images are not optimal for comparison, and prone images were not obtained. IMPRESSION: 1. Appropriate hemodynamic response to pharmacologic stress. 2. No chest pain or diagnostic ECG changes through most of the test (however,brief period of inferior ST elevations seen at 2 minutes (only one strip)). 3. Possible nontransmural myocardial injury of the inferior wall with periinfarct ischemia (inferolat eral wall) 4. Normal left ventricular size and systolic function. Dictated by: Sharon Bronson M.D. on 11/18/2016 at 17:52 Approved by: Sharon Bronson M.D. on 11/18/2016 at 18:17
[2016-11-18] MEDS ORDERED: Heparin 25K Unit/500mL 0.45 NS 25,000 UNIT in IV Premix 1 EACH IV SCH (18:30)
[2016-11-18] MEDS ORDERED: Heparin 5,000 Unit/mL Inj IVPUSH PRN (18:30)
--- NOTE | 2016-11-18 18:41 | NUR ---
Heparin/CBGs/plan aPTT level at 1000 was 145.9. Per MD order, heparin drip discontinued. CBGs today 119, 145, and 214. Pt did not eat until dinner so at dinner time, 2 units of humalog given. ADA diet initiated upon return from stress test. MD spoke with patient and patient's daughter around 1840. Pt and daughter understand the current plan and pt will be staying at least one more night.
[2016-11-19] VITALS (15 sets, daily range): BP systolic 109–164; BP diastolic 50–81; PULSE 51–83; RESP 14–20; O2SAT 92–98
[2016-11-19 03:27] LABS: BASOPHILS % (AUTO) 0.7 % (0-3); EOSINOPHILS % (AUTO) 8.2 % (0-5); MONOCYTES % (AUTO) 14.7 % (4-12); Mean Corpuscular Hemoglobin 31.1 pg (27.0-35.0); Mean Corpuscular Volume 92.8 fL (81-100); NEUTROPHILS % (AUTO) 57.1 % (40-74); Platelet Count 152 bil/L (150-400)
--- NOTE | 2016-11-19 04:57 | NUR ---
Heparin gtt Pt initially refused to have Heparin gtt restarted and wanted to talk to MD first. Staff explained and educate about the medication. Md talked to patient and he agreed to start it. Pt denies any pain/discomfort. Telemetry SB as low as 30s while asleep. Heart rate up to 50s-60s 1st Degree HB while awake. Pt was asymptomatic.
[2016-11-19] MEDS: Senna-Docusate 8.6-50 mg Tablet PO PRN (06:06)
[2016-11-19] MEDS: Insulin LISPRO 300 Unit/3 mL Inj SUBQ SCH ×4 (08:00→22:00)
[2016-11-19] MEDS: Sodium Chloride LOK Flush 10 mL Syringe IVFLUSH SCH (10:20)
--- NOTE | 2016-11-19 10:21 | PCM.PNMED ---
Subjective Date of Service November 19, 2016 Subjective Mr. Paz is a 75 year old gentleman with diabetes mellitus, prior pulmonary embolism, obesity, obstructive sleep apnea and chronic bilateral lower extremity edema who presented to the Emergency Department with the complaint of increasing difficulties with ambulation and generalized weakness. Admitted for elevated troponin with concern for acute coronary syndrome and possible heart failure. Hospital day #2. Heparin drip restarted following stress test results. Spoke with Cardiology regarding possible cardiac cath today. Patient remains asymptomatic for chest pain and continues to report general weakness but states that it has improved since admission. He denies fevers, chills, abdominal pain, nausea or vomiting and reports mild constipation. Exam Vital Signs Vital Sign - Last Date Time Temp Pulse Resp B/P Pulse Ox O2 Delivery O2 Flow Rate FiO2 11/19/16 03:13 36.7 58 20 162/74 95 Room Air Intake and Output 11/18/16 11/18/16 11/19/16 Cumulative From/Thru 15:00 23:00 07:00 11/17/16 17:40 - 11/19/16 05:50 Intake Total 400 ml 591 ml 1362 ml Output Total 1200 ml 2100 ml Balance 400 ml -609 ml -738 ml Intake Oral 400 ml 440 ml 960 ml IV Total 151 ml 402 ml Output Urine Total 1200 ml 2100 ml # Voids 3 2 5 # Bowel Movements 0 0 Exam General: Chronically ill-appearing, obese male, in no acute distress. Alert and oriented x3. HEENT: Normocephalic, atraumatic. Pupils equal round and reactive to light, no scleral icterus, mucous membranes moist. Neck: Supple, non-tender, no thyromegaly or lymphadenopathy. Cardiovascular: Regular rate and rhythm with normal S1/S2, no murmurs, rubs or gallops heard. Pulmonary: Normal breath sounds, symmetric chest rise, lungs grossly clear to auscultation with no wheezing, rales or rhonchi. Abdomen: Soft, Non-tender, Non-distended, Normoactive bowel tones. Extremities: 2 + edema pitting edema of lower extremities bilaterally, no cyanosis, no clubbing. Musculoskeletal: Flattened arches of the feet bilaterally, nontender to palpation without crepitus or effusions. Ankle joints stable without subluxation or laxity. Neurological: Generalized weakness, no focal neurologic deficits. IVs and Medications Medications Reviewed: Medications were reviewed in detail Lab and Diagnostics Laboratory Tests Test 11/18/16 10:20 11/19/16 03:00 Activated Partial Thromboplast Time 145.9sec (22.8-33.0) 29.5sec (22.8-33.0) White Blood Count 7.1th/mm3 (3.8-10.1) Red Blood Count 4.72mil/mm3 (4.40-5.80) Hemoglobin 14.7g/dL (13.8-17.2) Hematocrit 43.8% (41.0-50.0) Mean Corpuscular Volume 92.8fL (81-100) Mean Corpuscular Hemoglobin 31.1pg (27.0-35.0) Mean Corpuscular Hemoglobin Concent 33.6% (32.0-37.0) Red Cell Distribution Width 13.4% (12.3-15.4) Platelet Count 152bil/L (150-400) Neutrophils (%) (Auto) 57.1% (40-74) Lymphocytes (%) (Auto) 18.3% (14-46) Monocytes (%) (Auto) 14.7% (4-12) Eosinophils (%) (Auto) 8.2% (0-5) Basophils (%) (Auto) 0.7% (0-3) Sodium Level 140mEq/L (134-144) Potassium Level 4.7mEq/L (3.5-5.2) Chloride Level 104mEq/L (97-108) Carbon Dioxide Level 21mmol/L (18-29) Blood Urea Nitrogen 31mg/dL (8-27) Creatinine 1.05mg/dL (0.76-1.27) Estimat Glomerular Filtration Rate 73mL/min (>59) Glucose Level 133mg/dL (60-99) Calcium Level 9.7mg/dL (8.5-10.1) Total Bilirubin 0.6mg/dL (0.0-1.2) Aspartate Amino Transf (AST/SGOT) 14U/L (0-50) Alanine Aminotransferase (ALT/SGPT) 10U/L (0-44) Alkaline Phosphatase 68U/L (25-160) Total Protein 5.9g/dL (6.4-8.4) Albumin 3.7g/dL (3.4-5.0) Microbiology 11/17/16 Urine Culture - No growth to date Result Diagram: 11/19/16 0300 11/19/16 0300 X-Rays, CTs and MRIs X-RAY CHEST ONE VIEW, PORTABLE 11/17/16 IMPRESSION: Mild interstitial prominence previously present, heart size at the upper limits of normal. Possible slight superimposed pulmonary edema. Dictated and approved by: Td Bliss M.D. on 11/17/2016 at 20:25 CT ANGIO CHEST PULMONARY EMBOLISM 11/17/16 IMPRESSION: 1. No pulmonary embolus seen. 2. Stable appearance of ascending aortic aneurysm measuring 5.3-5.4 cm in maximal dimension, just above the aortic root, and is also present on prior pulmonary angiographic imaging as early as 09/19/15. 3. Stable appearance of a partially visualized cyst projecting from the upper outer border of the right kidney, also present on prior CT scanning. Note: These findings are concordant with the preliminary interpretation, except for the benefit of comparison to prior CT renal protocol examination regarding the right upper renal cortical cyst. Also, there is a stable enlargement of the ascending aorta at 5.3-5.4 cm maximal AP dimension which was also present on the earliest available CT pulmonary angiogram from 09/19/15, and . Dictated and approved by: Td Bliss M.D. on 11/18/2016 at 3:26 Cardiac Echo Impressions ECHOCARDIOGRAM REPORT 11/18/2016 Interpretation Summary The left ventricle is normal in size. Left ventricular systolic function is low normal. The ejection fraction is estimated to be 50-55%. Compared to the prior exam, left ventricular function is borderline decreased. There is hypokinesis along the inferolateral wall and part of the inferior wall which is new since prior study. Assessment of diastolic parameters indicates a relaxation abnormality of the left ventricle, consistent with normal filling pressures. The right ventricle is normal in size and function. The right ventricular systolic pressure is estimated at 25 mmHg assuming a right atrial pressure of 3 mm Hg. The left atrium is mildly dilated. The right atrium is mildly dilated. There is mild aortic regurgitation. The aortic valve is moderately calcified. There is no hemodynamically significant valvular aortic stenosis. The aortic root is moderately dilated. The ascending aorta is moderately enlarged. This is increased compared to the previous study. Additional Diagnostics PROCEDURE: 1 DAY PHARMACOLOGICAL STRESS TEST Rest and pharmacological stress myocardial perfusion SPECT with gated imaging and ejection fraction IMPRESSION: 1. Appropriate hemodynamic response to pharmacologic stress. 2. No chest pain or diagnostic ECG changes through most of the test (however, brief period of inferior ST elevations seen at 2 minutes (only one strip)). 3. Possible nontransmural myocardial injury of the inferior wall with periinfarct ischemia (inferolateral wall) 4. Normal left ventricular size and systolic function. Dictated by: Sharon Bronson M.D. on 11/18/2016 at 17:52 Assessment & Plan 75 year old gentleman with diabetes mellitus, prior pulmonary embolism, obesity , obstructive sleep apnea and chronic bilateral lower extremity edema who presented to the Emergency Department with the complaint of increasing difficulties with ambulation and generalized weakness. Admitted for elevated troponin with concern for acute coronary syndrome and possible heart failure. Hospital day #2. 1. Acute Congestive heart failure, diastolic. Present on admission. Active. -Clinically, patient appears to have signs and symptoms of heart failure including: bilateral lower extremity, increasing dyspnea on exertion, and orthopnea. -Echocardiogram on 11/18/16 showing EF of 50-55%, hypokinesis of inferolateral wall (new from prior study), evidence of diastolic dysfunction and moderate dilation of the aortic root. -Received 40mg of IV furosemide on admission, will continue home dosing of oral furosemide 60mg daily. -Patient not on a beta-jewel, likely due to bradycardia. Will continue losartan and furosemide. 2. Concern for acute coronary syndrome, present on admission. Active. - Elevated troponin (0.070) in patient with high-risk for coronary artery disease. Risk factors include: hypertension, obesity, diabetes, family history of coronary disease and age - Patient admitted under observational status for additional monitoring on telemetry, trending of troponins, cardiac stress test and started on Heparin drip. - Cardiac stress test with possible nontransmural myocardial injury of the inferior wall with periinfarct ischemia (inferolateral wall) - Spoke with Cardiology, will evaluate this morning for catheterization. - Continue aspirin, atorvastatin - SL nitroglycerin as needed for chest pain 3. Ascending aortic aneurysm, chronic. Present on admission. Appears stable. -CT angiogram on 11/17/16 showing 5.3-5.4cm ascending aortic aneursym, just above the aortic root, present on prior CT angiogram as early as 09/19/15. -Patient not on a beta-jewel, likely due to bradycardia. Will continue losartan and furosemide to optimize blood pressure control. -Continue aspirin, atorvastatin. 3 Diabetes Type 2, insulin using, chronic. Present on admission. Presumed stable. - HbA1c 6.4 - Hold home regimen: insulin 70/30 (28units morning, 30units evening) - Continue low dose correctional insulin 4 Obesity with Obstructive Sleep Apnea, chronic. Present on admission. Presumed stable - Patient non-compliant with CPAP - Supplemental oxygen as needed - Consider bringing in CPAP from home if patient requires additional monitoring 5 Hyperlipidemia, chronic. Present on admission. Presumed stable. - Continue home Atorvastatin 20 mg daily 6 Hypertension, chronic. Present on admission. Presumed stable. - Continue home Losartan 50 mg bid 7 Benign prostate hyperplasia, chronic. Present on admission. Presumed stable. - Continue home Tamsulosin 0.4 mg daily - Acetaminophen for mild pain/fever/headache - Bowel regimen - Antiemetics Disposition: Patient will likely discharge in 1-2 days, pending results of cardiac catheterization. Pain Evaluation: Adequate Pain Control Resuscitation Status: CPR: Attempt Resuscitation Attending Statement The patient was seen and examined together with Resident/House-Staff on 11/19/16 and I agree with the history, exam and plan as outlined in the note above. Kylee Lombardi DO November 19, 2016 08:15 Navin Burr November 22, 2016 14:26
--- NOTE | 2016-11-19 11:25 | NUR ---
Ambulate w/Nsg Pt is released to ambulate w/nsg 2-3x/day as tolerated. PT will cont to see 2x/week for safe progression of AD.
--- NOTE | 2016-11-19 11:57 | NUR ---
Social Work: initial Assessment Data & Assessment: See Initial Assessment. EMR reviewed. Patient is a 75 y/o male that admitted for Nstemi and generalized weakness per H&P. SW met with patient at bedside to discuss discharge planning, SW role explained and initial assessment complete. Patient confirmed that his PCP is Dr. Amanda Mccoy and insurance is Medicare and [employer] [facility] [employer] [facility]. patient has no LTC benefits and patient states that he is a [place], but is not sure of his VA benefits. Patient's re-admit score is 3 highrisk. Patient is not sure if he has an Advance Directive/DPOA and declined the information. Patient's NOK is his daughter, Regla Hull [phone]. Patient lives at home with his spouse in a mobile home with no steps to enter. Patient drives and uses a cane at bedline. Patient has had HH in the past but is not able to re-call the name. Patient has no SNF history. Patient was evaluated by PT and they are recommending outpatient PT at discharge. Patient will likely discharge hme with no needs from SW. SW will continue to follow and assist patient. SW provided contact information on patient's white board. Plan: Patient will likely discharge home with outpatient physical therapy via POV. SW will continue to follow and assist patient throughout stay. Taty Millan LMSW, JOY Addendum: 11/19/16 at 1207 by TATY MILLAN Amended: Links added.
[2016-11-19] MEDS ORDERED: fentaNYL-PF 50 mCg/mL 2 mL Inj IVPUSH ONE (12:40)
--- NOTE | 2016-11-19 13:06 | NUR ---
clinical genetics laboratory chief.. Pt has denied any chest pain or SOB. Did well amb with PT in the hallway. Seen by Dr Bass this am and decision was made to take pt to chemical processing laborer. Heparin gtt dc'd at 1300 and pt to the lab at that time. Pt left message with his on cell phone about his procedure.
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
--- NOTE | 2016-11-19 14:08 | CS94 ---
[address] [address] DIAGNOSTIC CARDIAC CATHETERIZATION PATIENT: NICK BEYER : 1940 MR#: [id number] ADMIT: 11/17/2016 JOB ID: [id number] SERVICE DATE: 11/19/2016 CHIEF COMPLAINT: Dyspnea on exertion. Mildly elevated troponin and abnormal stress test. PATIENT PRESENTATION: This is a delightful 75-year-old man with diabetes, obstructive sleep apnea, excess weight comes in with worsening dyspnea on exertion and fatigue. Stress test suggestive of ischemia in the RCA distribution and dynamic ST-segment elevation in inferior leads. Echocardiogram with focal motion abnormalities in PDA distribution. PROCEDURES PERFORMED: 1. Left heart catheterization-selective coronary angiograms. 2. Right common femoral artery vascular access under ultrasound guidance. 3. Hemodynamic measurements. PROCEDURE: Following informed consent, the patient was prepped and draped in the usual sterile fashion. A 6-[place] sheath was placed in the right common femoral artery. Sheath placement was confirmed via femoral angiogram. JL4 and JR4 catheters were used to engage left main and right coronary artery ostia respectively. Hand injection and craniocaudal angulation was used to obtain selective coronary angiograms. All exchanges were performed over exchange length wire because the patient has some significant tortuosity in his abdominal aorta area. Attempt to engage left main with JL4 catheter was unsuccessful so I used JL5 catheter instead. I expected this because he has significant tortuosity in his aorta and significant ascending aortic dilation (5.2 cm). Ventriculogram was deferred because I could not actually cross the aortic valve because of significant tortuosity. The pigtail catheter was hubbed and I could not actually advance it into the left ventricle because it was hubbed by the time I reached the ascending aorta. FINDINGS: Right common femoral artery vascular access: There is no evidence of contrast extravasation or dissection. There is moderate plaquing in the right common femoral artery. It gives rise to SFA and profunda. The sheath enters the right common femoral artery at the lower third of the femoral head just above the bifurcation. There is no evidence of contrast extravasation or dissection. The vessel appears ectatic. Coronary angiograms: Left main is a normal caliber vessel, gives rise to LAD and the circumflex. There is excellent blow-back and no dampening on engagement. The left main gives rise to LAD and circumflex. LAD is a wrap-around vessel. It gives rise to medium first diagonal branch, large branching second diagonal branch and multiple septal perforators. There is no obstructive disease visualized. Circumflex is a tortuous vessel. It is nondominant. It gives rise to a medium sized first obtuse marginal branch, a large branching second OM and then travels in the AV groove as a diminutive vessel. No obstructive lesions are seen. Right coronary artery is a dominant vessel. It gives rise to PDA and posterior lateral branch. No obstructive lesions are seen. HEMODYNAMIC MEASUREMENTS: The patient is hypertensive with wide pulse pressure. Blood pressure 169/68, pulse is 53 beats per minute. Patient has sinus bradycardia. IMPRESSION: 1. No evidence of obstructive coronary artery disease to explain abnormal stress test. 2. Dilated ascending aorta previously documented on CT scan. 3. Hypertension with wide pulse pressure. RECOMMENDATION: Continue medical therapy. Thank you very much for the opportunity to evaluate this patient.
--- NOTE | 2016-11-19 14:52 | NUR ---
Post Cath: Pt arrived to [facility] bed 9 at 1355, VSS, RA SpO2 92-94%, no c/o pain. R groin soft, R pedal pulse Doppler, no c/o pain or SOB. Tolerating po intake, pt alert and awake and talking. Informed of plan for 4 hours of bedrest post cath, states understanding. Able to void per urinal upon arrival to [facility] Addendum: 11/19/16 at 1620 by JOSE ARMANDO VICK RN Pt taken back to [facility] room 2010 at 1610 in pt bed. R groin soft, R pedal pulse audible with doppler. No c/o pain, VSS on 2L NC SpO2 98%. Report called to Gabrielle Fuentes RN
[2016-11-19] MEDS ORDERED: Atropine 1 mg/10 mL (Code) Syringe IVPUSH PRN (16:35)
[2016-11-19] MEDS ORDERED: 0.9% Sodium Chloride 250 ML BOLUS IV PRN (16:35)
[2016-11-19] MEDS ORDERED: Sodium Chloride LOK Flush 10 mL Syringe IVFLUSH PRN (16:35)
[2016-11-19] MEDS ORDERED: Ondansetron 2 mg/mL 2 mL Inj IVPUSH PRN (16:35)
[2016-11-19] MEDS ORDERED: 0.9% Sodium Chloride 400 ML (4 HRS) IV ONE (16:35)
--- NOTE | 2016-11-19 19:28 | NUR ---
Post cath.. received from [facility] at 1620.. pt awake, stable condition. Feet cool and toes slightly dusky bilaterally. Warm blankets applied and feet are now warm and pulses are palpable. At 1750, pt was noted to be off tele and was found to have amb into the bathroom without notifying the RN despite being on bedrest. Pt returned to bed, groin site remains stable. Instructed to call when needing to use BR. Pt did not receive post cath IVF. Dr Bass notified and clarified the pt should receive the NS as ordered. Night RN updated and will hang.
[2016-11-20] VITALS (8 sets, daily range): BP systolic 123–154; BP diastolic 63–88; PULSE 57–87; RESP 16–18; O2SAT 92–93
--- NOTE | 2016-11-20 06:13 | NUR ---
Note Pt alert and oriented x3. He denies any chest pain/discomfort. Right groin dressing CDI. No bleeding/hematoma noted. Bruise on the right groin noted. Pt denies any leg or groin pain at this time.
[2016-11-20] MEDS: Insulin LISPRO 300 Unit/3 mL Inj SUBQ SCH (08:23)
--- NOTE | 2016-11-20 09:15 | NUR ---
[facility] signed
--- NOTE | 2016-11-20 09:59 | PCM.DIMED ---
Discharge Instructions Date of Service November 20, 2016 Dates of Hospitalization November 17, 2016 at 23:20 Discharge Diagnosis Discharge Diagnosis -Fatigue and generalized weakness -Ascending aortic aneurysm, chronic. -Diabetes Type 2, insulin using, chronic. -Obesity with Obstructive Sleep Apnea, chronic. -Hyperlipidemia, chronic. -Hypertension, chronic. -Benign prostate hyperplasia, chronic. Diet Heart Healthy, Diabetic Activity No restrictions Call your provider Fever or Chills, Shortness of breath, Chest pain, Weakness (unilateral) Patient Instructions Follow up with your primary care provider as planned to discuss this hospital stay and any ongoing concerns. We recommend discussing your sleep apnea with your primary care provider as this is likely contributing to your fatigue and increases your risk of heart disease and stroke. Follow up with Cardiology at the scheduled appointment time. . Follow-up Provider: Amanda Mccoy MD Follow-up with PCP in: Other (2-3 weeks) Provider: Eleazar Bach PA-C Follow-up in: Other (2-3 weeks) Kylee Lombardi DO November 20, 2016 09:43
--- NOTE | 2016-11-20 10:50 | NUR ---
Social Work Note: Discharge Data& Assessment: EMR reviewed. Per pt is medically ready to discharge home via POV. SW met with pt and pt daughters at bedside to confirm discharge plan and assess for any unmet needs. Moses Blair is a 75 year old male admitted on 11/17/2016 for NONSTEMi and generalized weakness. Per pt is medically improved and ready to discharge. PT recommends outpt PT. Pt and pt family confirm discharge plan. Pt daughter to transport pt home. Pt denies any other needs. Pt family denies any other needs. No other discharge needs identified. Plan: Per pt is medically ready to discharge home via POV with outpt PT. Pt denies any other needs. Pt family denies any other needs. No other discharge needs identified. NEEL Rowley
--- NOTE | 2016-11-20 11:56 | NUR ---
Discharge Patient without complaints. Denies pain. VSS. Discharge instructions and medication record reviewed at bedside. Pt verbalizes understanding of instructions. Awaiting daughter to be escorted to private vehicle home.
--- NOTE | 2016-11-20 20:37 | PCM.DC.MED ---
Discharge Summary Date of Service November 20, 2016 Dates of Hospitalization Date of Hospital Admission November 17, 2016 at 23:20 Date of Discharge: November 20, 2016 Providers: Admitting Physician: Hai Fairbanks MD Primary Care Physician: Amanda Mccoy MD Attending Physician: Hai Fairbanks MD Diagnosis at Time of Discharge Diagnosis at Time of Discharge -Fatigue and generalized weakness -Concern for NSTEMI -Possible congestive heart failure -Ascending aortic aneurysm, chronic. -Diabetes Type 2, insulin using, chronic. -Obesity with Obstructive Sleep Apnea, chronic. -Hyperlipidemia, chronic. -Hypertension, chronic. -Benign prostate hyperplasia, chronic. Consultations CARDIOLOGY Procedures XRay, CTs & MRIs X-RAY CHEST ONE VIEW, PORTABLE 11/17/16 IMPRESSION: Mild interstitial prominence previously present, heart size at the upper limits of normal. Possible slight superimposed pulmonary edema. Dictated and approved by: Td Bliss M.D. on 11/17/2016 at 20:25 CT ANGIO CHEST PULMONARY EMBOLISM 11/17/16 IMPRESSION: 1. No pulmonary embolus seen. 2. Stable appearance of ascending aortic aneurysm measuring 5.3-5.4 cm in maximal dimension, just above the aortic root, and is also present on prior pulmonary angiographic imaging as early as 09/19/15. 3. Stable appearance of a partially visualized cyst projecting from the upper outer border of the right kidney, also present on prior CT scanning. Note: These findings are concordant with the preliminary interpretation, except for the benefit of comparison to prior CT renal protocol examination regarding the right upper renal cortical cyst. Also, there is a stable enlargement of the ascending aorta at 5.3-5.4 cm maximal AP dimension which was also present on the earliest available CT pulmonary angiogram from 09/19/15, and . Dictated and approved by: Td Bliss M.D. on 11/18/2016 at 3:26 . Cardiac Echo Impression ECHOCARDIOGRAM REPORT 11/18/2016 Interpretation Summary The left ventricle is normal in size. Left ventricular systolic function is low normal. The ejection fraction is estimated to be 50-55%. Compared to the prior exam, left ventricular function is borderline decreased. There is hypokinesis along the inferolateral wall and part of the inferior wall which is new since prior study. Assessment of diastolic parameters indicates a relaxation abnormality of the left ventricle, consistent with normal filling pressures. The right ventricle is normal in size and function. The right ventricular systolic pressure is estimated at 25 mmHg assuming a right atrial pressure of 3 mm Hg. The left atrium is mildly dilated. The right atrium is mildly dilated. There is mild aortic regurgitation. The aortic valve is moderately calcified. There is no hemodynamically significant valvular aortic stenosis. The aortic root is moderately dilated. The ascending aorta is moderately enlarged. This is increased compared to the previous study. Invasive Procedures DIAGNOSTIC CARDIAC CATHETERIZATION 11/19/16 PROCEDURES PERFORMED: 1. Left heart catheterization-selective coronary angiograms. 2. Right common femoral artery vascular access under ultrasound guidance. 3. Hemodynamic measurements. IMPRESSION: 1. No evidence of obstructive coronary artery disease to explain abnormal stress test. 2. Dilated ascending aorta previously documented on CT scan. 3. Hypertension with wide pulse pressure. RECOMMENDATION: Continue medical therapy. Brigid Bass MD 11/19/16 1328 Other Diagnostics PROCEDURE: 1 DAY PHARMACOLOGICAL STRESS TEST Rest and pharmacological stress myocardial perfusion SPECT with gated imaging and ejection fraction IMPRESSION: 1. Appropriate hemodynamic response to pharmacologic stress. 2. No chest pain or diagnostic ECG changes through most of the test (however, brief period of inferior ST elevations seen at 2 minutes (only one strip)). 3. Possible nontransmural myocardial injury of the inferior wall with periinfarct ischemia (inferolateral wall) 4. Normal left ventricular size and systolic function. Dictated by: Sharon Bronson M.D. on 11/18/2016 at 17:52 Brief History Per admission history and physical 11/18/16. Hai Fairbanks MD Moses Russoflorcheo is a 75 year old male with Diabetes, Prior Pulmonary embolism, Obesity and Sleep apnea and chronic BLE edema presents to [facility] emergency with increasing problems ambulation and generalized weakness Patient reported onset a couple of weeks ago, worsening within the last three days. Associated symptoms include exertional shortness of breath, bilateral leg weakness (requiring a walker, walking only few feet before pausing to rest, baseline is able to perform activities of daily life), generalized "tingling," fatigue, and chills. Denies any coughing, fever or chills. Denies any urinary symptoms such as dysuria. Patient reported compliance with medications. Also reporting good Diabetes control at home Patient has history of Pulmonary embolism years ago and currently not on any anticoagulations. Etiology of this was unclear at this time Case discussed with Dr Finney, CT confirmed no Pulmonary embolism. Heparin initiated. Discussed risk factors and need for stress test and will be admitted Hospital Course Mr. Paz is a 75 year old gentleman with diabetes mellitus, prior pulmonary embolism, obesity, obstructive sleep apnea and chronic bilateral lower extremity edema who presented to the Emergency Department with the complaint of increasing difficulties with ambulation and generalized weakness. Admitted for elevated troponin with concern for acute coronary syndrome and possible heart failure. 1. Fatigue and generalized weakness, present on admission. Presumed stable. -Likely secondary to untreated obstructive sleep apnea, deconditioning and possible diabetic neuropathy. Patient non-compliant with CPAP. -Recommend outpatient followup for sleep apnea and possible physical therapy. 2. Concern for NSTEMI, present on admission. Resolved. - Elevated troponin (0.070) in a patient with high-risk for coronary artery disease. Risk factors: hypertension, obesity, diabetes, family history of coronary disease and age - Patient was admitted under observational status for additional monitoring on telemetry, trending of troponins, cardiac stress test and started on Heparin drip. - Cardiac stress test with possible nontransmural myocardial injury of the inferior wall with periinfarct ischemia (inferolateral wall) and patient taken to the culture media laboratory assistant. - Left-sided heart cath with no evidence of obstructive coronary artery disease to explain abnormal stress test and a dilated ascending aorta previously documented on CT scan. - Cardiology recommends medical management and risk reduction at time of discharge. Patient is to follow up with Cardiology in 2-3 weeks. - Patient was continued on home aspirin and statin. 3. Possible Congestive heart failure, diastolic. Present on admission. -Clinically, patient appears to have signs and symptoms of heart failure including: bilateral lower extremity, increasing dyspnea on exertion, and orthopnea. -Echocardiogram on 11/18/16 showed an EF of 50-55%, hypokinesis of inferolateral wall (new from prior study), evidence of diastolic dysfunction and moderate dilation of the aortic root. -Received 40mg of IV furosemide on admission, will continue home dosing of oral furosemide 60mg daily. -Patient not on a beta-jewel, likely due to bradycardia. Will continue losartan and furosemide. -Cardiac workup including echo, pharmacologic stress test and catheterization with evidence of diastolic dysfunction. 3. Ascending aortic aneurysm, chronic. Present on admission. Presumed stable. -CT angiogram on 11/17/16 showed 5.3-5.4cm ascending aortic aneursym, just above the aortic root, present on prior CT angiogram as early as 09/19/15. -Patient not on a beta-jewel, which was attributed to his bradycardia and he was continued on home losartan and furosemide to optimize blood pressure control. -Patient was continued on home aspirin, atorvastatin. 3 Diabetes Type 2, insulin using, chronic. Present on admission. Presumed stable. - HbA1c 6.4 - Patient's home insulin was held and he received correctional insulin lispro. 4 Obesity with Obstructive Sleep Apnea, chronic. Present on admission. Active - Patient non-compliant with CPAP. - Recommend outpatient followup. 5 Hyperlipidemia, chronic. Present on admission. Presumed stable. -Patient was continued on home Atorvastatin 20 mg daily 6 Hypertension, chronic. Present on admission. Presumed stable. -Patient was continued on home Losartan 50 mg bid 7 Benign prostate hyperplasia, chronic. Present on admission. Presumed stable. -Patient was continued on Tamsulosin 0.4 mg daily Exam Vital Signs (Last) Date Time Temp Pulse Resp B/P Pulse Ox O2 Delivery O2 Flow Rate FiO2 11/20/16 08:01 59 16 154/65 11/20/16 07:21 36.9 93 Nasal Cannula 2.00 Test 11/17/16 20:10 11/17/16 22:19 11/17/16 22:40 11/18/16 04:30 Prothrombin Time 10.0sec (8.1-12.5) Prothromb Time International Ratio 0.94ratio D-Dimer 6.21mg/L FEU (<0.50) Hemoglobin A1c 6.4% (4.8-5.6) Lactic Acid Level 1.0mmol/L (0.4-2.0) Magnesium Level 1.9mg/dL (1.6-2.6) Pro-B-Type Natriuretic Peptide 172.5pg/mL (0-486) Urine Color Yellow (YELLOW) Urine Appearance Clear (CLEAR,HAZY) Urine pH 5.5 (5.0-8.0) Urine Specific Whiteside 1.020 (1.003-1.035) Urine Protein Negativemg/dL (NEG,TRACE) Urine Glucose (UA) Negativemg/dL (NEGATIVE) Urine Ketones Negativemg/dL (NEGATIVE) Urine Occult Blood Negative (NEGATIVE) Urine Nitrite Negative (NEGATIVE) Urine Bilirubin Negative (NEGATIVE) Urine Urobilinogen Normalmg/dL (NORMAL) Urine Leukocyte Esterase Small (NEGATIVE) Urine RBC 0-2/hpf (0-2) Urine WBC 6-10/hpf (0-5) Urine Epithelial Cells Occasional/hpf (NONE-MOD) Urine Crystals None seen (NONE SEEN) Urine Bacteria None/hpf (NONE-FEW) Urine Hyaline Casts None/lpf (NONE) Urine Granular Casts None seen (NONE SEEN) Urine Waxy Casts None seen (NONE SEEN) Urine Red Blood Cell Casts None seen (NONE SEEN) Urine White Blood Cell Casts None seen (NONE SEEN) Urine Mucus None seen (None Seen) Urine Trichomonas None seen (NONE SEEN) Urine Yeast None (NONE SEEN) Urine Culture Reflexed Indicated Thyroid Stimulating Hormone (TSH) 1.210uIU/mL (0.450-4.500) Total Creatine Kinase 82U/L (21-232) Creatine Kinase MB 4.3ng/mL (0.0-10.4) Creatine Kinase MB % % (0.0-5.0) Troponin T 0.054ug/L (0.0-0.011) Triglycerides Level 84mg/dL (0-149) Cholesterol Level 148mg/dL (100-199) LDL Cholesterol, Calculated 78.200mg/dL (0-99) VLDL Cholesterol 16.800mg/dL HDL Cholesterol 53mg/dL (>39) Cholesterol/HDL Ratio 2.79 (0.0-4.4) Test 11/19/16 03:00 11/19/16 09:10 11/20/16 03:13 White Blood Count 7.1th/mm3 (3.8-10.1) Red Blood Count 4.72mil/mm3 (4.40-5.80) Mean Corpuscular Volume 92.8fL (81-100) Mean Corpuscular Hemoglobin 31.1pg (27.0-35.0) Mean Corpuscular Hemoglobin Concent 33.6% (32.0-37.0) Red Cell Distribution Width 13.4% (12.3-15.4) Platelet Count 152bil/L (150-400) Neutrophils (%) (Auto) 57.1% (40-74) Lymphocytes (%) (Auto) 18.3% (14-46) Monocytes (%) (Auto) 14.7% (4-12) Eosinophils (%) (Auto) 8.2% (0-5) Basophils (%) (Auto) 0.7% (0-3) Total Bilirubin 0.6mg/dL (0.0-1.2) Aspartate Amino Transf (AST/SGOT) 14U/L (0-50) Alanine Aminotransferase (ALT/SGPT) 10U/L (0-44) Alkaline Phosphatase 68U/L (25-160) Total Protein 5.9g/dL (6.4-8.4) Albumin 3.7g/dL (3.4-5.0) Activated Partial Thromboplast Time 60.7sec (22.8-33.0) Hemoglobin 14.5g/dL (13.8-17.2) Hematocrit 42.6% (41.0-50.0) Sodium Level 141mEq/L (134-144) Potassium Level 4.5mEq/L (3.5-5.2) Chloride Level 105mEq/L (97-108) Carbon Dioxide Level 25mmol/L (18-29) Blood Urea Nitrogen 39mg/dL (8-27) Creatinine 1.27mg/dL (0.76-1.27) Estimat Glomerular Filtration Rate 59mL/min (>59) Glucose Level 176mg/dL (60-99) Calcium Level 9.7mg/dL (8.5-10.1) Discharge Medications Discharge Medications Aspirin (Aspirin) 81 Mg Tablet 81 MG PO DAILY (Reported) Atorvastatin (Lipitor) 20 Mg Tablet 20 MG PO HS (Reported) Furosemide (Furosemide) 40 Mg Tablet 60 MG PO QAM (Reported) Insulin Aspart (NovoLOG 70/30 U100 Insulin Vial) 100 Unit/Ml Vial 28 UNIT SUBQ QAM (Reported) Insulin Aspart (NovoLOG 70/30 U100 Insulin Vial) 100 Unit/Ml Vial 30 UNIT SUBQ HS (Reported) Losartan Potassium (Losartan Potassium) 50 Mg Tablet 50 MG PO QAM (Reported) Losartan Potassium (Losartan Potassium) 50 Mg Tablet 25 MG PO HS (Reported) Omeprazole (Omeprazole) 20 Mg Tablet.dr 20 MG PO QAM (Reported) Followup Plan Disposition: Home Discharge Diet: Heart Healthy, Diabetic Discharge Activity: No restrictions Patient Instructions Follow up with your primary care provider as planned to discuss this hospital stay and any ongoing concerns. We recommend discussing your sleep apnea with your primary care provider as this is likely contributing to your fatigue and increases your risk of heart disease and stroke. Follow up with Cardiology at the scheduled appointment time. . Follow-up Provider: Amanda Mccoy MD Follow-up with PCP in: Other (2-3 weeks) Provider: Eleazar Bach PA-C Follow-up in: Other (2-3 weeks) Time spent 35 min Attending Statement The patient was seen and examined together with Resident/House-Staff on 11/20/16 and I agree with the history, exam and plan as outlined in the note above. Kylee Lombardi DO November 20, 2016 10:02 Navin Burr November 22, 2016 16:58
[2016-12-01] MEDS ORDERED: TRAM50TA2 PO (15:28)
[2016-12-01] MEDS ORDERED: TAMS0.4C98 PO (15:28)
== END 2016-11-20 12:45 | disposition home or self-care (01) | DRG 287 ==
LOC: SED 17:34 → OSC 23:20 → OBSVTOIN 23:20 → INTOOBSV 23:20 → PCC 23:37
PROVIDERS: ADMIT Hospitalist; ATTEND Hospitalist
PROC: 4A023N7 Measurement of Cardiac Sampling and Pressure, Left Heart, Percutaneous Approach (ICD-10-PCS; principal; 2016-11-19)
PROC: B2111ZZ Fluoroscopy of Multiple Coronary Arteries using Low Osmolar Contrast (ICD-10-PCS; 2016-11-19)
DX: I50.31 Acute diastolic (congestive) heart failure (principal); E11.9 Type 2 diabetes mellitus without complications; Z79.4 Long term (current) use of insulin; I10 Essential (primary) hypertension; E78.5 Hyperlipidemia, unspecified; N40.0 Benign prostatic hyperplasia without lower urinary tract symptoms; G47.33 Obstructive sleep apnea (adult) (pediatric); Z86.711 Personal history of pulmonary embolism; E66.9 Obesity, unspecified; Z68.37 Body mass index [BMI] 37.0-37.9, adult; I71.2 Thoracic aortic aneurysm, without rupture

== ENCOUNTER 2016-12-02 10:45 | Day surgery (SDC) | payer MEDICARE, OTHER ==
[~2016-12-02] VITALS: Ht 180.3 cm; Wt 124.0 kg
[~2016-12-02 10:45] MED LIST changes: +ASPI-973 PO; +Lactated Ringer's 1,000 ML IV ONE; -RIVA15TA PO; +TAMS0.4C98 PO; +TRAM50TA2 PO
[2016-12-02] MEDS ORDERED: Propofol 10,000 mCg/mL 20 mL Inj ONE (10:46)
[2016-12-02 12:27] VITALS: BP 149/73; PULSE 66; RESP 17; O2SAT 93
[2016-12-02] MEDS ORDERED: Lactated Ringer's 1,000 ML IV SCH (12:53)
[2016-12-02] MEDS ORDERED: MetoCLOpramide 5 mg/mL 2 mL Inj IVPUSH PRN (12:55)
[2016-12-02] MEDS ORDERED: Ondansetron 2 mg/mL 2 mL Inj IVPUSH PRN (12:55)
[2016-12-02 13:34] VITALS: BP 126/83; PULSE 60; RESP 14; O2SAT 96
[2016-12-02 13:44] VITALS: BP 120/65; PULSE 57; RESP 16; O2SAT 97
[2016-12-02 13:54] VITALS: BP 169/85; PULSE 54; RESP 16; O2SAT 100
--- NOTE | 2016-12-02 17:33 | PCM.ANEP1 ---
Post Anesthesia PACU Phase 1 Assessment Vital Signs Vital Signs Date Time Temp Pulse Resp B/P Pulse Ox O2 Delivery O2 Flow Rate FiO2 12/02/16 13:54 54 16 169/85 100 Room Air 12/02/16 13:44 57 16 120/65 97 Nasal Cannula 2 12/02/16 13:34 36.5 60 14 126/83 96 Nasal Cannula 2 12/02/16 12:27 66 17 149/73 93 Room Air Anesthetic Administered: MAC Level of Alertness: Awake, talking DERAS's with Equal Strength: Yes Pain: No Nausea or Vomiting: No CV Function and Hydration: Yes Airway Device: none Oxygen Delivery: Room Air Lungs: Diminished Dermatome Level: Full Sensation PACU Phase 2 Assessment Complications: No Follow up Care: N/A Patient Instructions Provided: N/A Justo Ferguson MD December 02, 2016 17:33
--- NOTE | 2016-12-02 17:33 | PCM.HPANE ---
Patient Data Surgeon Admitting Provider: Attending Provider:Diana Vallecillo MD Primary Care Physician:Amanda Mccoy MD Other Provider:David Benites Anesthesia Reason for Visit Altered Bowel Function, Gerd Ht/WT & BMI Body Mass Index Allergies Coded Allergies: No Known Allergies (Unverified , 12/01/16) Past Anesthesia History Anesthesia History: Denies:: Abnormal Airway, Anesthesia Reactions, Difficult Intubation, Fam Anesthesia Reaction, Fam Malignant Hypertherm, Malignant Hyperthermia Diabetes History Hx Diabetes?: Yes (insulin) MRSA MRSA: No Medications Reported Medications Insulin Aspart (NovoLOG 70/30 U100 Insulin Vial)100 Unit/Ml Vial30 Unit SUBQ HS #1 VIAL Ref 0 11/18/16 Aspirin 81 Mg [id number] Mg PO DAILY Ref 0 11/18/16 Losartan Potassium 50 Mg [id number] Mg PO QAM 12/19/15 Atorvastatin (Lipitor)20 Mg Euesiz76 Mg PO HS Ref 0 09/19/15 Furosemide 40 Mg Xvwbbf89 Mg PO QAM 09/19/15 Omeprazole 20 Mg Tablet.dr20 Mg PO QAM 09/19/15 Insulin Aspart (NovoLOG 70/30 U100 Insulin Vial)100 Unit/Ml Vial28 Unit SUBQ QAM 09/19/15 Discontinued Reported Medications Tramadol 50 Mg Ajigil51 Mg PO Q4H PRN For Pain Ref 0 12/01/16 Tamsulosin (Flomax)0.4 Mg Capsule0.4 Mg PO DAILY Ref 0 12/01/16 Losartan Potassium 50 Mg Axiywo12 Mg PO HS 11/18/16 History History of ENT Problems?: Yes HEENT History: Positive for:: Cataracts Hearing Problem Denies:: Abnormal Airway Difficult Intubation Dysphagia Glaucoma Sinus Problem TMJ Denture Type: None Teeth Condition: Within Normal Limits Hx of Heart Problems?: Yes Cardiovascular History: Positive for:: Edema (bilateral lower extremity edema , chronic) Hypertension Rheumatic Fever (1952) Denies:: AICD Abdominal Aortic Aneurism Atrial Fibrillation Cardiac Surgery Chest Pain Congestive Heart Failure Coronary Artery Disease Heart Murmur Irregular Heartbeat Pacemaker Peripheral Vascular Thrombophlebitis Valvular Heart Disease Hx of Respiratory Problem?: Yes Respiratory History: Positive for:: Asthma Cough (LAST 6 WEEKS) Pneumonia Denies:: COPD Chest Surgery Dyspnea Emphysema Hemoptysis Oxygen Administration Pulmonary Embolism Tuberculosis Use of C-PAP Machine Use of Inhalers / NEBS Hx Neurologic Problems?: Yes Neurological History: Positive for:: CVA () Dementia ("questionable") Dizziness ("increasing over the past few weeks") Headaches Denies:: Alzheimer's Disease Multiple Sclerosis Parkinson's Disease Peripheral Neuropathy Seizures TIA Hx of GI Problems?: Yes Gastrointestinal History: Denies:: Cirrhosis Diverticulitis Gall Bladder Disease Gastroesphageal Reflux Gastrointestinal Bleeding Heartburn Hepatitis Hiatal Hernia Liver Disease Rectal Bleeding Hx of Problems?: No Genitourinary History: Denies:: HX of Hemodialysis Kidney Stones Urinary Tract Infection HX of Peritoneal Dialysis: No Male Hx: Positive for:: Prostate Problems (prostate remodel 2010) Denies:: Scrotal Mass Testicular Surgery Skin History: Denies:: History Skin Disorders? Pressure Ulcers Hx Musculoskeletal Problems?: Yes Musculoskeletal History: Positive for:: Joint Replacement (bilat knee replacement sx 2011) Denies:: Back Injury Musculoskeletal Trauma Hx of Psycho/Social Problems?: No Psycho Social History: Denies:: Anxiety Bipolar Disorder Hx Depression Suicide Attempt Hx Surgeries?: Yes (bilat knee replacement, cataract sx, L toe repair, prostate remodel) Hx Any Other Health Problems?: Yes Other History: Positive for:: Hospitalization (bilat knees) Denies:: Cancer Endocrine Disease Thyroid Disease History Blood Transfusions: Denies:: Blood Transfuse Reaction Blood Transfusions Hx Diabetes: Yes (insulin) Hx Alcohol Use: NoHx Substance Use: No Smoking Status: Never Smoker Have You Smoked inLast 12 mo: No Stop/Bang Risk Assessment Category Category 1A: Patient has history of documented sleep apnea, and HAS NOT received any narcotic, sedative or anesthesia administration during this stay. Category 1B: Patient has history of documented sleep apnea, and HAS received any narcotic , sedative or anesthesia administration during this stay Category 2: Patient has SUSPECTED Obstructive Sleep Apnea, and HAS received any narcotic , sedative or anesthesia administration during this stay. Category 3: Patient has SUSPECTED Obstructive Sleep Apnea and HAS NOT received narcotic, sedative or anesthesia administration during this stay. Category 4: Outpatient in Procedural Areas with known sleep apnea or who screen positive for High Risk via the STOP/BANG questionnaire. Exam Exam General Appearance: Alert, Oriented X3, Cooperative, No Acute Distress HEENT/AIRWAY: MP 2, Neck Movement (FROM), Mouth Opening (3 FBMO) Lungs: Diminished Heart: Regular Rate/Rhythm Plan Impression Patient chart reviewed, patient interviewed and anesthestic plan with risks, benefits, and alternatives discussed, and informed consent obtained. NPO per Anesth. Guidelines: Yes ASA Physical Status: ASA3 Severe Disease Anesthetic Plan: MAC Bene/Risks/Altern/Consents: Yes HP Complete Prior to Induction: Yes Justo Ferguson MD December 02, 2016 07:25
--- NOTE | 2016-12-03 10:21 | ENDO ---
[address] [address] ENDOSCOPY PROCEDURE PATIENT: NICK BEYER : 1940 MR#: [id number] ADMIT: 12/02/2016 JOB ID: [id number] DATE OF SERVICE: 12/02/2016 FIRST PROCEDURE PERFORMED: Esophagogastroduodenoscopy. INDICATION: Gastroesophageal reflux. ASA CLASSIFICATION, MALLAMPATI SCORE AND MEDICATIONS: The patient's ASA classification, Mallampati score and medications as per Dr. Justo Ferguson's anesthesia report. INSTRUMENT USED: [id number]. PROCEDURE DETAILS: After informed consent was obtained, the patient was brought into the GI suite, where he was placed on oxygen via nasal cannula and monitored with continuous pulse oximeter, telemetry, and blood pressure monitoring. A time-out was performed. Then, he was placed in the left lateral decubitus position, and a bite block was placed. Medications were then administered for sedation. A standard EGD scope was then inserted through the bite block and advanced under direct visualization to the second portion of the duodenum without difficulty. FINDINGS: 1. Normal appearing duodenal bulb, first and second portions. Multiple random biopsies were obtained. 2. Normal appearing pylorus and antrum. Multiple random biopsies were obtained. 3. In the mid gastric body, there was an approximately 3-4 mm polyp. The appearance was consistent with fundic gland polyp. Polyp was completely removed with a cold biopsy forceps. 4. There were few smaller polyps scattered throughout the gastric body and in the fundus. These appeared to be fundic gland in appearance. 5. The GE junction was at approximately 45 cm. 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 Multiple biopsies were obtained. The remainder of the esophagus otherwise unremarkable. IMPRESSION: 1. Multiple gastric body polyps, appearance consistent with fundic gland polyps. 2. Irregular gastroesophageal junction. RECOMMENDATIONS: 1. Reflux precautions. 2. PPI daily. 3. Proceed to colonoscopy. SECOND PROCEDURE PERFORMED: Colonoscopy. INDICATION: Altered bowel habits. ASA CLASSIFICATION, MALLAMPATI SCORE, AND MEDICATIONS: Please see above for ASA classification, Mallampati score and medications. INSTRUMENT USED: [id number]. PREPARATION QUALITY: Fair. PROCEDURE DETAILS: After completion of the EGD exam, the patient was turned and then a digital rectal exam was performed which was unremarkable. The colonoscope was then inserted into the rectum and advanced under direct visualization to the cecum, which was identified by the presence of the ileocecal valve and appendiceal orifice. Once the cecum was reached, the colonoscope was withdrawn back into the rectum and mucosa and lumen were examined. In the rectum, retroflexion was performed. Following retroflexion, remaining air in the rectum was suctioned, and procedure was completed. FINDINGS: 1. In the ascending colon, there were two polyps that ranged in size from 4 mm to 8 mm. The 8 mm polyp was pedunculated and was removed with a hot snare. The polyp that was adjacent to this measured approximately 3-4 mm, and was removed with a cold snare. 2. In the transverse colon, there were two polyps ranging in size from diminutive to approximately 5 mm. They were removed with combination of cold biopsy forceps and hot snare. 3. In the descending colon, there was an approximately 4 mm sessile polyp that was removed with a cold snare. 4. Scattered diverticula were seen throughout the left side of the colon. 5. Internal hemorrhoids were noted on retroflexion. 6. Multiple random biopsies were obtained throughout the colon secondary to the patient's complaint of altered bowel function. IMPRESSION: 1. Two ascending colon polyps. 2. Two transverse colon polyps. 3. Descending colon polyp. 4. Left-sided diverticulosis. 5. Internal hemorrhoids. RECOMMENDATIONS: 1. Avoid NSAIDs and anticoagulants for 72 hours. 2. Follow up in GI clinic in 2-3 weeks. COMPLICATIONS: None. ESTIMATED BLOOD LOSS: Less than 5 mL.
--- NOTE | 2016-12-03 17:18 | PATH ---
SURGICAL PATHOLOGY Attending Physician:Gucci Crawford CASE STATUS: Signed Out PATIENT NAME: NICK BEYER PID: [id number] : 1940 DATE COLLECTED:12/02/2016 21:29 SPECIMEN: 1: Duodenum, Biopsy 2: Gastric, Biopsy 3: Gastric, Biopsy 4: Esophagus, Biopsy 5: Colon, Biopsy 6: Colon, Biopsy 7: Colon, Biopsy 8: Colon, Biopsy CLINICAL HISTORY: 1). DUODENAL BIOPSY 2). GASTRIC BIOPSY 3). GASTRIC BODY POLYP X1 4). DISTAL ESOPHAGEAL BIOPSY 5). ASCENDING COLON POLYP X2 6). RANDOM COLON BIOPSY 7). TRANSVERSE COLON POLYP X2 8). DESCENDING COLON POLYP X1 FINAL DIAGNOSIS: 1.DUODENAL BIOPSY: DUODENAL MUCOSA WITH NO DIAGNOSTIC ABNORMALITY. Negative for active inflammation, features of sprue, dysplasia, and malignancy. 2.STOMACH, BIOPSY: ANTRAL AND BODY-TYPE MUCOSA WITH NO DIAGNOSTIC ABNORMALITY. Negative for Helicobacter organisms. Negative for intestinal metaplasia. Negative for dysplasia and malignancy. 3.STOMACH, BODY POLYP, BIOPSY: FUNDIC GLAND POLYP. Negative for dysplasia and malignancy. 4.DISTAL ESOPHAGUS, BIOPSY: SQUAMOCOLUMNAR JUNCTIONAL MUCOSA WITH MILD CHRONIC ACTIVE INFLAMMATION. Negative for intestinal metaplasia. Negative for dysplasia and malignancy. 5.ASCENDING COLON, POLYP, BIOPSIES: MULTIPLE FRAGMENTS OF TUBULOVILLOUS ADENOMA. No evidence of malignancy or high-grade dysplasia. 6.RANDOM COLON, BIOPSY: COLONIC MUCOSA WITH NO DIAGNOSTIC ABNORMALITY. Negative for active, chronic and microscopic colitis. Negative for dysplasia and malignancy. 7.TRANSVERSE COLON, POLYP, BIOPSIES: TUBULAR ADENOMAS. 8.DESCENDING COLON, POLYP, BIOPSY: TUBULAR ADENOMA. ICD10 CODE D12.2 D12.3 D12.4 R10.9 GROSS DESCRIPTION: The specimen is received in eight formalin filled containers labeled with the patient's name. 1). The specimen is sublabeled "duodenal" and consists of 3 portions of tissue which aggregate to 0.3 x 0.3 x 0.2 CM. The specimen is entirely submitted in cassette 1A. 2). The specimen is sublabeled "gastric" and consists of 3 portions of tissue which aggregate to 0.3 x 0.3 x 0.3 CM. The specimen is entirely submitted in cassette 2A. 3). The specimen is sublabeled "gastric body polyp" and consists of a 0.3 x 0.3 x 0.2 CM portion of tissue which is entirely submitted in cassette 3A. 4). The specimen is sublabeled "distal esophageal" and consists of 3 portions of tissue which aggregate to 0.3 x 0.3 x 0.2 CM. The specimen is entirely submitted in cassette 4A. 5). The specimen is sublabeled "ascending colon polyp" and consists of multiple portions of tissue which aggregate to 0.6 x 0.6 x 0.5 CM. The specimen is entirely submitted in cassette 5A. 6). The specimen is sublabeled "random colon" and consists of multiple portions of tissue which aggregate to 0.5 x 0.5 x 0.3 CM. The specimen is entirely submitted in cassette 6A. 7). The specimen is sublabeled "transverse colon polyp" and consists of 4 portions of tissue which aggregate to 0.3 x 0.3 x 0.2 CM. The specimen is entirely submitted in cassette 7A 8). The specimen is sublabeled "descending colon polyp" and consists of 2 portions of tissue which aggregate to 0.2 x 0.2 x 0.2 CM. The specimen is entirely submitted in cassettes 8A. 12/02/2016 DAC MICRO DESCRIPTION: See diagnosis. ICD-9 CODES: CPT CODES: 1: 16481 2: 31471 3: 20039 4: 38153 5: 02607 6: 15222 7: 17135 8: 16195 Electronically Signed Out Citlalli Canales MD [facility] Pathology [facility] [address], [place] [address] Technical component performed at [facility], [facility] [address], [place], [address]
== END 2016-12-02 23:59 | disposition home or self-care (01) ==
LOC: END 10:45
PROVIDERS: ATTEND Internal Medicine Gastroenterology
DX: R19.4 Change in bowel habit (principal); D12.2 Benign neoplasm of ascending colon; D12.3 Benign neoplasm of transverse colon; D12.4 Benign neoplasm of descending colon; K21.9 Gastro-esophageal reflux disease without esophagitis; K31.7 Polyp of stomach and duodenum; K57.30 Diverticulosis of large intestine without perforation or abscess without bleeding; K64.8 Other hemorrhoids; E11.9 Type 2 diabetes mellitus without complications; Z79.4 Long term (current) use of insulin; I10 Essential (primary) hypertension; J45.909 Unspecified asthma, uncomplicated; G47.33 Obstructive sleep apnea (adult) (pediatric); Z86.73 Personal history of transient ischemic attack (TIA), and cerebral infarction without residual deficits; Z79.82 Long term (current) use of aspirin; Z86.711 Personal history of pulmonary embolism
CPT/HCPCS: 43239; 45380; 45385; 88305; J7120

== ENCOUNTER 2016-12-05 09:26 | Emergency (ER) | payer MEDICARE, OTHER ==
[~2016-12-05] VITALS: Ht 177.8 cm; Wt 123.6 kg
[~2016-12-05 09:26] MED LIST changes: -Lactated Ringer's 1,000 ML IV ONE; -TAMS0.4C98 PO; -TRAM50TA2 PO
--- NOTE | 2016-12-05 09:32 | ED.REPORT ---
HPI- Male Date of Service December 05, 2016 ED Provider: Matt Todd MD Nursing Notes Stated Complaint: INFECTION/TESTICLES Allergies: Coded Allergies: No Known Allergies (Unverified , 12/01/16) Scheduled Aspirin (Aspirin) 81 Mg Tablet 81 MG PO DAILY Atorvastatin (Lipitor) 20 Mg Tablet 20 MG PO HS Furosemide (Furosemide) 40 Mg Tablet 60 MG PO QAM Insulin Aspart (NovoLOG 70/30 U100 Insulin Vial) 100 Unit/Ml Vial 28 UNIT SUBQ QAM Insulin Aspart (NovoLOG 70/30 U100 Insulin Vial) 100 Unit/Ml Vial 30 UNIT SUBQ HS Losartan Potassium (Losartan Potassium) 50 Mg Tablet 50 MG PO QAM Omeprazole (Omeprazole) 20 Mg Tablet.dr 20 MG PO QAM General Time Seen by MD: 09:30 Past Medical History Past Medical History Notes: Admission for PE 09/17/15, on Warfarin Past Medical History Sleep apnea (not compliant w/CPAP) Arthritis Chronic BLE edema PE 09/2015 Degenerative disc disease CVA Reports: Diabetes mellitus, GERD, Stroke Past Surgical History Bilateral knee replacements Smoking History Never Smoker Social History Alcohol Use: Denies alcohol use Drug Use: Denies drug use Other Social History: Good social support, , Local resident Ambulatory Status Independent Discharge & Departure Referrals: Amanda Mccoy MD (PCP) Matt Todd MD December 05, 2016 09:32
[2016-12-05 09:35] VITALS: BP 138/69; PULSE 66; RESP 16; O2SAT 98
--- NOTE | 2016-12-05 09:43 | ED.REPORT ---
HPI- Male Date of Service December 05, 2016 ED Provider: Hari Hathaway MD Pt is a 75 year old male with a hx of DM, HTN and chronic LE edema presenting to the ED complaining of testicular swelling onset 1 week ago. Associated symptoms include incontinence, dyspnea on exertion, and scrotal itchiness (when Vaseline the pt puts on the area to soothe it wears off). Denies dysuria, chest pain or a recent increase in swelling in the legs. The pt recently had a heart catheter on 11/19 showing no obstructive CAD, and states that symptoms began shortly after. He also had a stress test on 11/18 showing normal LV function by stress test. Nursing Notes Stated Complaint: INFECTION/TESTICLES Chief Complaint: General Complaint Nursing Notes Reviewed: Yes Allergies: Coded Allergies: No Known Allergies (Unverified , 12/05/16) Scheduled Aspirin (Aspirin) 81 Mg Tablet 81 MG PO DAILY Atorvastatin (Lipitor) 20 Mg Tablet 20 MG PO HS Furosemide (Furosemide) 40 Mg Tablet 60 MG PO QAM Insulin Aspart (NovoLOG 70/30 U100 Insulin Vial) 100 Unit/Ml Vial 28 UNIT SUBQ QAM Insulin Aspart (NovoLOG 70/30 U100 Insulin Vial) 100 Unit/Ml Vial 30 UNIT SUBQ HS Losartan Potassium (Losartan Potassium) 50 Mg Tablet 50 MG PO QAM Omeprazole (Omeprazole) 20 Mg Tablet.dr 20 MG PO QAM General Time Seen by MD: 09:35 Chief Complaint Scrotal swelling Hx Obtained From: Patient, Spouse Arrived By: Walk-in Onset Occurred: 1 week ago Symptom Duration: Since onset Severity: Current: No pain currently Severity: Maximum: No pain Recent Healthcare: No recent doctor visit, No recent hospitalization Similar Sx Previous: No Risk- Male Torsion Risk Stratification RF Statements: Risk factors reviewed Past Medical History Past Medical History Notes: Admission for PE 09/17/15, on Warfarin Past Medical History Sleep apnea (not compliant w/CPAP) Arthritis Chronic BLE edema PE 09/2015 Degenerative disc disease CVA Reports: Diabetes mellitus, GERD, Stroke Past Surgical History Bilateral knee replacements Smoking History Never Smoker Social History Alcohol Use: Denies alcohol use Drug Use: Denies drug use Other Social History: Good social support, , Local resident Ambulatory Status Independent Review of Systems Male: Reports Incontinence, Reports Scrotal swelling, Denies Dysuria Musculoskeletal: Denies: Extremity swelling Skin: Reports Itching, Reports Swelling Complete sys rev & neg: except as marked. Respiratory: Reports: Dyspnea on exertion Cardiovascular: Denies: Chest pain Physical Exam Initial Vital Signs Vital Signs (First) Date Time Temp Pulse Resp B/P Pulse Ox O2 Delivery O2 Flow Rate FiO2 12/05/16 09:35 36.4 66 16 138/69 98 Room Air General/Constitutional: Well-developed, Well-nourished Head / Eyes: Atraumatic, Normocephalic, PERRL ENT: Mucous membranes moist, Conjunctiva normal, No scleral icterus Respiratory: Breath sounds normal, Clear to auscultation, No respiratory distress Abdomen / GI: No distention Skin: Warm, Dry, No cyanosis Neurologic: Alert, Oriented, Nonfocal Psychiatric: Mood/affect normal, Behavior normal, Normal thought content Male Genitourinary: Atraumatic Testes / Epidid / Scrotum: Positive: Scrotum erythema, Scrotum swollen Circumsised male genitalia. Penile shaft swollen. Weeping. Clear exudate, little bit of purulence. No testicular swellingor mass, testicles difficult to palpate. No inguinal adenopathy. Cardiovascular: Heart rate NL, Regular rhythm, Heart sounds NL, No gallop, No murmurs, No rubs Lower Extremity / Pelvis / MS: Neurologic intact, Vascular intact 3+ pitting edema bilaterally. Bruising to the right thigh. Interpretation & Diagnostics Interpretation & Diagnostics: XRAY CHEST 1 VIEW PORTABLE: IMPRESSION: No acute cardiopulmonary disease process. Dictated by: Majo Helm MD, PhD on 12/05/2016 at 11:18 Lab Results Interpretation Result Diagram: 12/05/16 1110 12/05/16 1110 Test 12/05/16 11:10 12/05/16 12:00 White Blood Count 10.0th/mm3 (3.8-10.1) Red Blood Count 4.73mil/mm3 (4.40-5.80) Hemoglobin 14.9g/dL (13.8-17.2) Hematocrit 45.2% (41.0-50.0) Mean Corpuscular Volume 95.6fL (81-100) Mean Corpuscular Hemoglobin 31.5pg (27.0-35.0) Mean Corpuscular Hemoglobin Concent 33.0% (32.0-37.0) Red Cell Distribution Width 13.6% (12.3-15.4) Platelet Count 167bil/L (150-400) Neutrophils (%) (Auto) 71.4% (40-74) Lymphocytes (%) (Auto) 9.0% (14-46) Monocytes (%) (Auto) 9.2% (4-12) Eosinophils (%) (Auto) 10.0% (0-5) Basophils (%) (Auto) 0.2% (0-3) Sodium Level 140mEq/L (134-144) Potassium Level 4.4mEq/L (3.5-5.2) Chloride Level 104mEq/L (97-108) Carbon Dioxide Level 25mmol/L (18-29) Blood Urea Nitrogen 29mg/dL (8-27) Creatinine 1.14mg/dL (0.76-1.27) Estimat Glomerular Filtration Rate 66mL/min (>59) Glucose Level 91mg/dL (60-99) Calcium Level 10.0mg/dL (8.5-10.1) Total Bilirubin 0.5mg/dL (0.0-1.2) Aspartate Amino Transf (AST/SGOT) 12U/L (0-50) Alanine Aminotransferase (ALT/SGPT) 12U/L (0-44) Alkaline Phosphatase 73U/L (25-160) Troponin T 0.031ug/L (0.0-0.011) Pro-B-Type Natriuretic Peptide 365.3pg/mL (0-486) Total Protein 6.4g/dL (6.4-8.4) Albumin 3.6g/dL (3.4-5.0) Hold Talbot Top Tube Received (Received) Urine Color Straw (YELLOW) Urine Appearance Clear (CLEAR,HAZY) Urine pH 6.0 (5.0-8.0) Urine Specific [place] 1.010 (1.003-1.035) Urine Protein Negativemg/dL (NEG,TRACE) Urine Glucose (UA) Negativemg/dL (NEGATIVE) Urine Ketones Negativemg/dL (NEGATIVE) Urine Occult Blood Trace (NEGATIVE) Urine Nitrite Negative (NEGATIVE) Urine Bilirubin Negative (NEGATIVE) Urine Urobilinogen Normalmg/dL (NORMAL) Urine Leukocyte Esterase Small (NEGATIVE) Urine RBC 0-2/hpf (0-2) Urine WBC 0-5/hpf (0-5) Urine Epithelial Cells Occasional/hpf (NONE-MOD) Urine Crystals None seen (NONE SEEN) Urine Bacteria Few/hpf (NONE-FEW) Urine Hyaline Casts None/lpf (NONE) Urine Granular Casts None seen (NONE SEEN) Urine Waxy Casts None seen (NONE SEEN) Urine Red Blood Cell Casts None seen (NONE SEEN) Urine White Blood Cell Casts None seen (NONE SEEN) Urine Mucus None seen (None Seen) Urine Trichomonas None seen (NONE SEEN) Urine Yeast None (NONE SEEN) Urinalysis Comment None Urine Culture Reflexed Indicated ECG Interpretation ECG Interpretation: Prolonged VT interval. Atrial premature complexes, no acute. Rate increased compared with 11/19. Time: 10:48 Interpreted by: ED physician Normal ECG Interpretation: Normal rate (63) Re-Eval/Medical Decision Re-Evaluation/Progress : Time of Eval: 13:26 Patient Status: Condition improved Re-Evaluation/Progress Note: Discussed plan for discharge. Pt understands and agrees with plan. All pt questions addressed. Counseled Regarding: Diagnosis, Lab results, Need for follow-up, When/why to return to ED Discharge & Departure Impression: Primary Impression: Candidal intertrigo Disposition: Home Discharge Condition All VS Reviewed: Yes Condition: Improved Additional Instructions: Your emergency room visit today included interview, examination, radiology and and EKG. the redness and discomfort after scrotum is consistent with a fungal infection. This will respond to drying and topical antifungal agents. When possible keep groin uncovered and exposed to the air. Elevate scrotum on a towel when sitting or lying. Apply miconazole powder twice a day for one month. Return to emergency department for fevers shaking chills or increasing pain in the groin. Follow up with primary care in about one week. Referrals: Amanda Mccoy MD (PCP) Lovely Attestation Portions of this note were transcribed by Maria Guadalupe Veras. I, Dr. Hathaway personally performed the history, physical exam and medical decision-making; I reviewed and confirmed the accuracy of the information in the transcribed note. Signed by : Lovely Knowles, 12/05 at 1333. copies to: Amanda Mccoy MD, Donald L MD December 05, 2016 09:43 MARIA GUADALUPE VERAS December 05, 2016 10:26
[2016-12-05] MEDS ORDERED: Miconazole 70 Gm Powder TOPICAL ONE (10:35)
--- NOTE | 2016-12-05 11:21 | DRSVH ---
PROCEDURE: X-RAY CHEST ONE VIEW, PORTABLE ([id number]) INDICATIONS: peripheral edema TECHNIQUE: One view of the chest was acquired. COMPARISON: [facility], CR, XR CHEST 1VW (PORTABLE), 11/17/2016, 19:32. FINDINGS: Surgical changes and devices: None. Lungs and pleura: No pleural effusions or pneumothorax. Lungs are clear. Mediastinum: Mediastinal contours appear normal. Heart size is normal. Bones and chest wall: No suspicious bony lesions. Overlying soft tissues appear unremarkable. IMPRESSION: No acute cardiopulmonary disease process. Dictated by: Majo Helm MD, PhD on 12/05/2016 at 11:18 Approved by: Majo Helm MD, PhD on 12/05/2016 at 11:19
[2016-12-05 11:30] LABS: BASOPHILS % (AUTO) 0.2 % (0-3); MONOCYTES % (AUTO) 9.2 % (4-12); Mean Corpuscular Hemoglobin 31.5 pg (27.0-35.0); Mean Corpuscular Volume 95.6 fL (81-100); NEUTROPHILS % (AUTO) 71.4 % (40-74); Platelet Count 167 bil/L (150-400)
[2016-12-05 11:51] VITALS: BP 164/68; PULSE 53; O2SAT 95
[2016-12-05 12:31] LABS: TROPONIN T 0.031 ug/L (0.0-0.011)
[2016-12-05 12:44] LABS: APPEARANCE,URINE CLEAR (CLEAR,HAZY); COLOR,URINE STRAW (YELLOW); OCCULT BLOOD,URINE TRACE (NEGATIVE)
[2016-12-05 12:45] LABS: UROBILINOGEN,URINE NORMAL (NORMAL)
[2016-12-05 14:33] VITALS: BP 132/52; PULSE 58; O2SAT 97
== END 2016-12-05 14:00 | disposition home or self-care (01) ==
LOC: SED 09:26
DX: B37.2 Candidiasis of skin and nail (principal); E11.9 Type 2 diabetes mellitus without complications; I10 Essential (primary) hypertension; K21.9 Gastro-esophageal reflux disease without esophagitis; Z86.711 Personal history of pulmonary embolism; Z79.82 Long term (current) use of aspirin; Z86.73 Personal history of transient ischemic attack (TIA), and cerebral infarction without residual deficits; Z96.653 Presence of artificial knee joint, bilateral; Z79.4 Long term (current) use of insulin